=== PATIENT | female | born 1980 | race Caucasian/White ===

== ENCOUNTER 2017-04-06 09:40 | Inpatient (IN) | payer OTHER ==
[2017-04-06] MEDS: ELECTROLYTE-148 SOLN 1,000 ML IV SCH (10:20)
[2017-04-06] MEDS ORDERED: CITRIC ACID/SODIUM CITRATE 30 ML UNIT-DOSE CUP PO ONE (10:20)
[2017-04-06] MEDS ORDERED: ELECTROLYTE-148 SOLN 1,000 ML IV SCH (10:20)
[2017-04-06 10:47] VITALS: BMI 31.6
[2017-04-06 11:26] LABS: BASO % 0.1 % (0-2.0); EOS % 0.6 % (0-4.5); HEMATOCRIT 36.8 % (32.4-45.2); HEMOGLOBIN 11.9 GM/dL (10.7-15.3); LYMPH % 19.6 % (8-40); MCH 26.9 pg (25.7-33.7); MCHC 32.3 g/dl (32.0-36.0); MEAN CELL VOLUME 83.4 fl (80-96); NEUT % 72.7 % (42.8-82.8); PLATELET COUNT 253 K/MM3 (134-434); RBC 4.42 M/mm3 (3.60-5.2); RDW 15.1 % (11.6-15.6); WHITE BLOOD COUNT 9.5 K/mm3 (4.0-10.0)
[2017-04-06 11:38] LABS: INR 0.94 (0.82-1.09); PROTHROMBIN TIME (PATIENT) 10.6 SEC (9.98-11.88)
[2017-04-06 11:41] LABS: ACTIVATED PTT 24.4 SECONDS (26.9-34.4)
[2017-04-06 11:44] LABS: ANION GAP 9 (8-16); BLOOD UREA NITROGEN 12 mg/dL (7-18); CALCIUM 9.1 mg/dL (8.5-10.1); CHLORIDE 103 mmol/L (98-107); CO2 25 mmol/L (21-32); CREATININE 0.7 mg/dL (0.55-1.02); GLUCOSE,RANDOM 80 mg/dL (74-106); POTASSIUM 4.2 mmol/L (3.5-5.1); SODIUM 137 mmol/L (136-145)
[2017-04-06] MEDS ORDERED: TUBERCULIN PPD 5 TU/0.1ML SYRINGE (IN PATIENT USE ONLY) ID ONE (12:00)
[2017-04-06 12:31] LABS: URINE APPEARANCE CLEAR; URINE BILIRUBIN NEGATIVE (NEGATIVE); URINE BLOOD NEGATIVE (NEGATIVE); URINE COLOR LTYELLOW; URINE GLUCOSE (UA) NEGATIVE (NEGATIVE); URINE KETONE NEGATIVE (NEGATIVE); URINE LEUK ESTERASE NEGATIVE (NEGATIVE); URINE NITRITE NEGATIVE (NEGATIVE); URINE PROTEIN NEGATIVE (NEGATIVE); URINE UROBILINOGEN NEGATIVE mg/dL (0.2-1.0)
--- NOTE | 2017-04-06 15:20 | HP ---
Past Medical History - Primary Care Physician PCP:: Dominique Richardson - Admission Chief Complaint: rupture of membranes History of Present Illness: 36 G P LMP EDC EGA 37 weeks with premature rupture of membranes with prev CS for repeat CS History Source: Patient - Past Medical History ...: 4 ...Para: 3 ...Term: 2 ...: 1 ...Spon : 0 ...Induced : 0 ...Multiple Gestation: 0 ...LMP: 07/18/16 ... Weeks Gestation by Dates: 37.3 ...EDC by Dates: 04/24/17 ...EDC by Sono: 04/24/17 - Past Surgical History Past Surgical History: Yes: Appendectomy, Hx Myomectomy: No Hx Transabdominal Cerclage: No Additional Surgical History: Abdominoplasty. Umbilical hernia repair - Smoking History Smoking history: Never smoked Have you smoked in the past 12 months: No Aproximately how many cigarettes per day: 0 If you are a former smoker, when did you quit?: 2 weeks ago - Alcohol/Substance Use Hx Alcohol Use: No Home Medications - Allergies Allergies/Adverse Reactions: Allergies Allergy/AdvReac Type Severity Reaction Status Date / Time No Known Allergies Allergy Verified 06/19/15 06:53 - Home Medications Home Medications: Ambulatory Orders Aspirin [ASA -] 1 tab PO DAILY 06/19/15 Vit No.124/Iron/Folic [ Vitamin Tablet] 1 each PO DAILY Oxycodone HCl/Acetaminophen [Percocet 5-325 mg Tablet -] 1 tab PO Q4H #20 tablet MDD 6 06/22/15 Physical Exam - Maternity Vital Signs: Vital Signs Temperature 98.6 F 04/06/17 14:00 Pulse Rate 68 04/06/17 14:00 Respiratory Rate 20 04/06/17 14:00 Blood Pressure 107/57 04/06/17 14:00 O2 Sat by Pulse Oximetry (%) - Labs Lab Results: CBC, BMP 04/06/17 11:00 04/06/17 11:00 Assessment/Plan IUP at 37.3 week Prev CS x 3 Abdominoplasty hernia repair Plan Repeat CS
--- NOTE | 2017-04-06 15:24 | OP ---
Operative Note - Note: Operative Date: 04/06/17 Pre-Operative Diagnosis: Prev Section. Voluntary Sterilization Operation: Repeat section. Bilateral Salpingectomy Findings: Nuchal Cord X1 Post-Operative Diagnosis: Same as Pre-op Surgeon: Dominique Richardson Cooler Supervisor: Flynn Olmos Anesthesia: Spinal Estimated Blood Loss (mls): 500 Operative Report Dictated: Yes
[2017-04-06] MEDS ORDERED: OXYTOCIN 10 UNITS/ML VIAL ONE (16:09)
[2017-04-06] MEDS ORDERED: morphine SULFATE/Preservative Free 0.5 MG/ML (1cc Syringe) ONE (16:13)
[2017-04-06] MEDS ORDERED: ceFAZolin SODIUM 1 GM VIAL ONE (16:49)
[2017-04-06] MEDS ORDERED: ONDANSETRON 4 MG/2 ML VIAL IVPUSH PRN (17:08)
[2017-04-06] MEDS ORDERED: PROPOFOL 20 ML ONE (17:15)
[2017-04-06] MEDS ORDERED: SUCCINYLCHOLINE CHLORIDE 200 MG/10 ML VIAL ONE (17:15)
[2017-04-06] MEDS ORDERED: METHYLERGONOVINE MALEATE 0.2 MG/1 ML AMP IM PRN (17:28)
[2017-04-06 18:15] LABS: ARTERIAL BLOOD GAS PCO2 57.3 mmHg (35-45)
[2017-04-06] MEDS ORDERED: OXYTOCIN 20 UNITS in 0.9% NS 20 UNIT/1,000 ML INFUS.BAG IV ONE (18:15)
[2017-04-06 18:19] LABS: ARTERIAL BLOOD GAS PO2 12.6 mmHg (80-100)
[2017-04-06] MEDS: OXYTOCIN 20 UNITS in 0.9% NS 20 UNIT/1,000 ML INFUS.BAG IV SCH (18:19)
[2017-04-06 18:20] LABS: ARTERIAL BLD GAS O2 SATURATION 15.5 % (90-98.9)
[2017-04-06] MEDS: AMPICILLIN NA/SULBACTAM NA 1.5 GM in SODIUM CHLORIDE 100 ML IVPB SCH (21:19)
--- NOTE | 2017-04-06 22:21 | OP ---
DATE OF OPERATION: 04/06/2017 PREOPERATIVE DIAGNOSIS: Previous section, voluntary sterilization. OPERATION: Repeat section, bilateral salpingectomy. POSTOPERATIVE DIAGNOSIS: Previous section, voluntary sterilization. Live female infant, nuchal cord x1. SURGEON: Dominique Richardson MD BRIMMER BLOCKER: SWAPNA Queen. unavailable. ANESTHESIA: Spinal. PROCEDURE: The patient was taken to the operating room, placed in supine position, prepped and draped in the usual sterile fashion. A timeout was performed in accordance with hospital regulation. Scalpel was then used to make a low transverse uterine incision through the patient's previous scar. Cautery was then used to go through layers of abdominal wall to the level of the fascia. Fascia was cut in the midline. Cautery was then used to open the fascia in smiling fashion. Kochers then used to bluntly and sharply dissect the rectus muscle off the fascia. Muscles split in the midline. Peritoneal cavity was then entered and carried up and downward. Bladder retractors then placed. Scalpel was then used. Visualization revealed a very thin lower segment. Membranes were seen. Scalpel was then used to make a low transverse uterine incision. The incision was carried up with the use of bandage scissors. A live female infant was delivered in LOT position. Nose and mouth suction performed. Nuchal cord x1 reduced. Shoulders were delivered without difficulty. DeLee cord clamping was done. Cord was clamped and cut, cord blood obtained, cord pH obtained. was handed to information resource consultant. Uterus exteriorized and cleaned with clean lap pads. Uterine incision then closed using 0 Biosyn suture, first layer in continuous interlocking, second layer imbricating the first layer. Tubes were bilaterally grasped and LigaSure was then used to coagulate and cut the fallopian tubes away and both right and left tubes were submitted to Pathology. Uterus interiorized, abdominal cavity cleaned with clean lap pads. Peritoneum closed using 0 Biosyn suture. Muscles approximated in midline using 0 Biosyn suture. Fascia was then closed using 0 Vicryl suture in 2 parts. Subcutaneous was closed using 0 Biosyn suture. Subcutaneous was then closed using 3-0 Vicryl in subcuticular fashion. Wound was washed and dressed. Patient tolerated procedure well. Estimated blood loss 500 mL. DOMINIQUE RICHARDSON M.D. CODI/[id number]
[2017-04-06] MEDS: IBUPROFEN 800 MG/8 ML IJ IVPB PRN (23:30)
[2017-04-07] MEDS: AMPICILLIN NA/SULBACTAM NA 1.5 GM in SODIUM CHLORIDE 100 ML IVPB SCH ×3 (03:19→16:26)
[2017-04-07] MEDS: OXYTOCIN 20 UNITS in 0.9% NS 20 UNIT/1,000 ML INFUS.BAG IV SCH ×2 (03:20→14:48)
[2017-04-07] MEDS: IBUPROFEN 800 MG/8 ML IJ IVPB PRN (08:21)
[2017-04-07 08:36] LABS: BASO % 0.1 % (0-2.0); HEMATOCRIT 32.8 % (32.4-45.2); HEMOGLOBIN 10.6 GM/dL (10.7-15.3); LYMPH % 11.4 % (8-40); MCH 27.2 pg (25.7-33.7); MCHC 32.2 g/dl (32.0-36.0); MEAN CELL VOLUME 84.6 fl (80-96); MEAN PLT VOLUME 9.1 fl (7.5-11.1); MONO % 6.2 % (3.8-10.2); NEUT % 81.3 % (42.8-82.8); PLATELET COUNT 192 K/MM3 (134-434); RBC 3.88 M/mm3 (3.60-5.2); RDW 15.2 % (11.6-15.6); WHITE BLOOD COUNT 9.8 K/mm3 (4.0-10.0)
--- NOTE | 2017-04-07 14:19 | PN ---
Progress Note (short form) - Note Progress Note: Anesthesia postop note 36y/o F, s/p spinal anesthesia/ duramorph for section POD#1, vss, aaox3, c/o generalized pruritus, some discomfort over night, sensory motor intact distally, ambulated earlier No anesthesia complications.
[2017-04-07] MEDS: IBUPROFEN 600 MG TABLET (FP) PO PRN ×2 (14:43→20:39)
[2017-04-07] MEDS: oxyCODONE HCL 5 MG TABLET PO PRN ×2 (14:46→20:40)
[2017-04-07] MEDS: SIMETHICONE 80 MG TAB.CHEW (FP) PO PRN ×2 (14:47→20:39)
[2017-04-07] MEDS ORDERED: BISACODYL 10 MG SUPP.RECT RC PRN (17:28)
[2017-04-08] MEDS: oxyCODONE HCL 5 MG TABLET PO PRN ×4 (00:29→21:55)
[2017-04-08] MEDS: IBUPROFEN 600 MG TABLET (FP) PO PRN ×4 (00:29→21:56)
[2017-04-08] MEDS: SIMETHICONE 80 MG TAB.CHEW (FP) PO PRN ×3 (05:56→21:54)
--- NOTE | 2017-04-08 08:05 | PN ---
Post Progress Note - Subjective Subjective: 36 yo Para 4 status post repeat , seen and evaluated. She c/o incision pain. Post Day: 2 Type of Delivery: Repeat C/S Vital Signs: Vital Signs Temperature 97.8 F 04/07/17 21:58 Pulse Rate 72 04/07/17 21:58 Respiratory Rate 18 04/07/17 21:58 Blood Pressure 120/66 04/07/17 21:58 O2 Sat by Pulse Oximetry (%) 100 04/06/17 18:50 Breast Exam: Yes: Soft Uterus: Yes: Fundus Firm Incision: Yes: Other (Steri strips in place) Abdomen/GI: Yes: Abdomen soft, Tolerating PO Lochia: Yes: Rubra Lochia, amount: Small Extremities: Yes: Calves non-tender Perineum: Yes: Intact Activity: Ambulating - Labs Labs: CBC WBC 9.8 K/mm3 (4.0-10.0) 04/07/17 07:50 RBC 3.88 M/mm3 (3.60-5.2) 04/07/17 07:50 Hgb 10.6 GM/dL (10.7-15.3) L D 04/07/17 07:50 Hct 32.8 % (32.4-45.2) 04/07/17 07:50 MCV 84.6 fl (80-96) 04/07/17 07:50 MCH 27.2 pg (25.7-33.7) 04/07/17 07:50 MCHC 32.2 g/dl (32.0-36.0) 04/07/17 07:50 RDW 15.2 % (11.6-15.6) 04/07/17 07:50 Plt Count 192 K/MM3 (134-434) D 04/07/17 07:50 MPV 9.1 fl (7.5-11.1) 04/07/17 07:50 Neutrophils % 81.3 % (42.8-82.8) 04/07/17 07:50 Lymphocytes % 11.4 % (8-40) D 04/07/17 07:50 Monocytes % 6.2 % (3.8-10.2) 04/07/17 07:50 Eosinophils % 1.0 % (0-4.5) 04/07/17 07:50 Basophils % 0.1 % (0-2.0) 04/07/17 07:50 Problem List - Problems (1) Status post repeat low transverse section Code(s): Z98.891 - HISTORY OF UTERINE SCAR FROM PREVIOUS SURGERY Assessment/Plan Status post repeat Ambulation Analgesia as needed Continue routine care
[2017-04-08] MEDS ORDERED: DIPHTH,PERTUSS(ACELL),TET 0.5 ML DISP.SYRIN IM ONE (10:00)
[2017-04-08] MEDS: MEPERIDINE HCL CARPU-JECT 50 MG/1 ML DISP.SYRIN IM PRN ×2 (10:50→18:05)
[2017-04-08] MEDS: ELECTROLYTE-148 SOLN 1,000 ML IV SCH (13:29)
[2017-04-08] MEDS: OXYTOCIN 20 UNITS in 0.9% NS 20 UNIT/1,000 ML INFUS.BAG IV SCH (18:59)
[2017-04-09] MEDS: MEPERIDINE HCL CARPU-JECT 50 MG/1 ML DISP.SYRIN IM PRN ×5 (00:09→23:44)
--- NOTE | 2017-04-09 08:02 | PN ---
Post Progress Note Type of Delivery: Repeat C/S Vital Signs: Vital Signs Temperature 98.5 F 04/08/17 22:00 Pulse Rate 83 04/08/17 22:00 Respiratory Rate 18 04/08/17 22:00 Blood Pressure 125/74 04/08/17 22:00 O2 Sat by Pulse Oximetry (%) 100 04/06/17 18:50 Breast Exam: Yes: Soft Uterus: Yes: Fundus Firm Incision: Yes: Dressing dry and intact Abdomen/GI: Yes: Abdomen soft Lochia: Yes: Serosa Lochia, amount: Moderate Extremities: Yes: Calves non-tender Perineum: Yes: Intact Activity: Ambulating - Labs Labs: CBC WBC 9.8 K/mm3 (4.0-10.0) 04/07/17 07:50 RBC 3.88 M/mm3 (3.60-5.2) 04/07/17 07:50 Hgb 10.6 GM/dL (10.7-15.3) L D 04/07/17 07:50 Hct 32.8 % (32.4-45.2) 04/07/17 07:50 MCV 84.6 fl (80-96) 04/07/17 07:50 MCH 27.2 pg (25.7-33.7) 04/07/17 07:50 MCHC 32.2 g/dl (32.0-36.0) 04/07/17 07:50 RDW 15.2 % (11.6-15.6) 04/07/17 07:50 Plt Count 192 K/MM3 (134-434) D 04/07/17 07:50 MPV 9.1 fl (7.5-11.1) 04/07/17 07:50 Neutrophils % 81.3 % (42.8-82.8) 04/07/17 07:50 Lymphocytes % 11.4 % (8-40) D 04/07/17 07:50 Monocytes % 6.2 % (3.8-10.2) 04/07/17 07:50 Eosinophils % 1.0 % (0-4.5) 04/07/17 07:50 Basophils % 0.1 % (0-2.0) 04/07/17 07:50 Assessment/Plan s/p section btl condition stable bowel sound present patient still request Demerol for pain management plan to continue current care
[2017-04-09 08:33] LABS: BASO % 0.2 % (0-2.0); EOS % 2.8 % (0-4.5); HEMATOCRIT 33.8 % (32.4-45.2); MCH 27.2 pg (25.7-33.7); MCHC 32.6 g/dl (32.0-36.0); MEAN CELL VOLUME 83.3 fl (80-96); MEAN PLT VOLUME 8.4 fl (7.5-11.1); MONO % 5.1 % (3.8-10.2); NEUT % 73.9 % (42.8-82.8); PLATELET COUNT 237 K/MM3 (134-434); RBC 4.06 M/mm3 (3.60-5.2); RDW 15.2 % (11.6-15.6); WHITE BLOOD COUNT 7.1 K/mm3 (4.0-10.0)
[2017-04-09] MEDS: ELECTROLYTE-148 SOLN 1,000 ML IV SCH (14:16)
[2017-04-09] MEDS: OXYTOCIN 20 UNITS in 0.9% NS 20 UNIT/1,000 ML INFUS.BAG IV SCH (17:43)
[2017-04-10 08:27] VITALS: BP 121/69; PULSE 61; TEMP 97.9
--- NOTE | 2017-04-10 09:36 | PN ---
Progress Note (SOAP) - Subjective Chief Complaint: Pt doing well - Current Medications Current Medications: Active Medications Bisacodyl (Dulcolax Suppository -) 10 mg RC PRN PRN PRN Reason: CONSTIPATION Last Admin: 04/08/17 23:12 Dose: 10 mg Diphenhydramine HCl (Benadryl Injection -) 25 mg IVPUSH Q4H PRN PRN Reason: Pruritis Last Admin: 04/07/17 11:39 Dose: 25 mg Parenteral Electrolytes (Plasma-Lyte 148 -) 1,000 mls @ 125 mls/hr IV ASDIR [facility] Last Admin: 04/09/17 14:16 Dose: Not Given Oxytocin/Sodium Chloride (Normal Saline+20 Units Oxytocin -) 20 unit in 1,000 mls @ 125 mls/hr IV ASDIR [facility] Last Admin: 04/09/17 17:43 Dose: Not Given Ibuprofen (Motrin -) 600 mg PO Q4H PRN PRN Reason: PAIN LEVEL 1 - 3 Last Admin: 04/08/17 21:56 Dose: 600 mg Ibuprofen (Caldolor Injection -) 600 mg IVPB Q6H PRN PRN Reason: PAIN LEVEL 1-5 Last Admin: 04/07/17 08:21 Dose: 600 mg Meperidine HCl (Demerol Injection -) 50 mg IM Q4H PRN PRN Reason: PAIN SCALE OF 8 Last Admin: 04/09/17 23:44 Dose: 50 mg Methylergonovine Maleate (Methergine Injection -) 0.2 mg IM Q4H PRN PRN Reason: Excessive Bleeding (L&D) Ondansetron HCl (Zofran Injection) 4 mg IVPUSH Q4H PRN PRN Reason: NAUSEA Oxycodone HCl (Roxicodone -) 5 mg PO Q4H PRN PRN Reason: PAIN LEVEL 4 - 6 Last Admin: 04/07/17 20:40 Dose: 5 mg Simethicone (Mylicon -) 80 mg PO Q4H PRN PRN Reason: GAS Last Admin: 04/08/17 21:54 Dose: 80 mg - Objective Vital Signs: Vital Signs Temperature 97.9 F 04/10/17 07:30 Pulse Rate 61 04/10/17 07:30 Respiratory Rate 20 04/10/17 07:30 Blood Pressure 121/69 04/10/17 07:30 O2 Sat by Pulse Oximetry (%) 100 04/06/17 18:50 Constitutional: Yes: Well Nourished, No Distress Cardiovascular: Yes: WNL Gastrointestinal: Yes: WNL ....Post : Yes: Uterus firm, Uterus non-tender Breast(s): Yes: WNL Musculoskeletal: Yes: WNL Extremities: Yes: WNL Peripheral Pulses WNL: No Edema: No Wound/Incision: Yes: Clean/Dry, Well Approximated Labs Lab Results: CBC, BMP 04/09/17 08:00 04/06/17 11:00 Problem List - Problems (1) Status post repeat low transverse section Code(s): Z98.891 - HISTORY OF UTERINE SCAR FROM PREVIOUS SURGERY Assessment/Plan SP POD 4 Plan DC home RTO 1 week
--- NOTE | 2017-04-10 09:39 | DS ---
Physical Exam-RECEIVING DISTRIBUTION STATION OPERATOR Vital Signs: Vital Signs Temperature 97.9 F 04/10/17 07:30 Pulse Rate 61 04/10/17 07:30 Respiratory Rate 20 04/10/17 07:30 Blood Pressure 121/69 04/10/17 07:30 O2 Sat by Pulse Oximetry (%) 100 04/06/17 18:50 Constitutional: Yes: Well Nourished, No Distress HENT: Yes: WNL Cardiovascular: Yes: WNL Respiratory: Yes: WNL Gastrointestinal: Yes: WNL, Normal Bowel Sounds, Soft ....Post : Yes: Uterus firm, Uterus non-tender Breast(s): Yes: WNL Musculoskeletal: Yes: WNL Extremities: Yes: WNL Edema: No Wound/Incision: Yes: Clean/Dry, Well Approximated Neurological: Yes: WNL, Alert, Oriented Labs: CBC, BMP 04/09/17 08:00 04/06/17 11:00 Delivery - Delivery Section: Low Flap Transverse Type of Anesthesia: Spinal EBL (cc): 500 Delivery, Single - Stages of Labor Date of Delivery: 04/06/17 Time of Delivery: 16:45 Time Placenta Delivered: 16:46 Placenta: Yes: Manual Removal - Condition of Box Spring Maker/Astrobiologist Present: Yes Name: Hubert Antonio Gender: Female Weight: 6 lb 3 oz Position: Left, OT Total Hours ROM (Hrs/Mins): 08:46 - 1 Minute Total Score: 8 5 Minutes Total Score: 8 - Feeding Plan Initial Plan: Elected not to breastfeed exclusively throughout hospitalization Discharge Summary Reason For Visit: Current Active Problems Status post repeat low transverse section (Acute) Condition: Good - Instructions Diet, Activity, Other Instructions: Dr. Dominique Richardson Pesticide Use Medical Coordinator discharge instructions Physical activity Resume your normal everyday activity as tolerated no heavy lifting or exercise until seen by your surgeon. You may walk unlimited cuauhtemoc of and climb stairs. You may resume driving the car when you feel safe and comfortable behind the wheel. No sexual activity as instructed by Dr. Richardson. Wound care If you have a bandage, leave it on, and keep dry for 48-72 hours. After that time discard the outer bandage. If they are tapes on the skin under the out of bandage leave them in place. They will peel off in the next 7 to 10 days. Do Not Peel them off. You may shower the day after surgery. If there are tapes present on the skin, you may shower over them. Diet There are no dietary restrictions. Eat healthy, high-fiber foods. Drink 6 to 8 glasses of liquid each day. This will assist in keeping your bowels are regular. Pain management You may take Tylenol or acetaminophen or Ibuprofen (for example, Motrin, Advil etc.) from my pain prescription medication is ordered should be taken as prescribed for moderate to severe pain. Call Dr. Richardson for any of the following: Severe pain not relieved by medication Fever of 101 or higher Excessive bleeding or drainage on dressing Inability to urinate Call the office at [phone] for an appointment in seven days. Disposition: HOME - Home Medications Comprehensive Discharge Medication List: Ambulatory Orders Aspirin [ASA -] 1 tab PO DAILY 06/19/15 Vit No.124/Iron/Folic [ Vitamin Tablet] 1 each PO DAILY Oxycodone HCl/Acetaminophen [Percocet 5-325 mg Tablet -] 1 tab PO Q4H #20 tablet MDD 6 06/22/15
--- NOTE | 2017-04-11 19:14 | PATH ---
Surgical Pathology Report Patient Name: LIBBY MENDOZA [facility]. Rec. #: [id number] /Age/Gender: 1980 (Age: 36) / F Account: [id number] Location: [facility] OBS/DIETARY AID Taken: 04/06/2017 Received: 04/07/2017 Reported: 04/11/2017 Physicians: Dominique Richardson M.D. Specimen(s) Received A: PLACENTA B: LEFT FALLOPIAN TUBE C: RIGHT FALLOPIAN TUBE Clinical History , antepartum at 36.6 weeks PROM Final Diagnosis A. PLACENTA, SECTION: 362 g THIRD TRIMESTER PLACENTA WITH TRIVASCULAR UMBILICAL CORD AND UNREMARKABLE PLACENTAL MEMBRANES. B. FALLOPIAN TUBE, LEFT, PARTIAL EXCISION: FULL LUMINAL PORTION OF FALLOPIAN TUBE WITH VASCULAR CONGESTION. C. FALLOPIAN TUBE, RIGHT, PARTIAL EXCISION: FULL LUMINAL PORTION OF FALLOPIAN TUBE WITH VASCULAR CONGESTION AND PARATUBAL CYST. Electronically Signed Romina Nicole M.D. Gross Description A. The specimen is received fresh labeled placenta and is a 362 gram, 15.0 x 13.0 x 2.9 cm. placenta with attached membranes and umbilical cord. The attached membranes are macias, translucent with focal opacities and insert marginally. The umbilical cord measures 5.5 cm. in length and averages 0.1 cm. in diameter. The cord inserts eccentrically, 3.5 cm. to the nearest margin. No true knots or strictures are identified. Cut surface of the umbilical cord reveals 3 vessels. The surface is ford-blue with minimal fibrin deposition and appropriate caliber vessels. The maternal surface is red-brown with focal defects. Sectioning reveals red-brown, spongy parenchyma. No lesions are identified. Web Mobile Designer sections are submitted in three cassettes as follows: 1- membrane rolls and umbilical cord; 2-3- full thickness sections of placenta. B. Received in formalin labeled "portion of left fallopian tube," is a 4.5 cm in length fimbriated fallopian tube. The outer surface is ford purple and smooth. Sectioning reveals an unremarkable lumen. Web Mobile Designer sections are submitted in 2 cassettes as follows: 1-fimbria; 0-lqfsu-mcmeoojk of fallopian tube. C. Received in formalin labeled "portion of right fallopian tube," is a 3.5 cm in length fimbriated fallopian tube. The outer surface is ford purple with a 2 cm in greatest dimension attached paratubal cyst. Sectioning reveals an unremarkable lumen. Web Mobile Designer sections are submitted in 2 cassettes as follows: 1-fimbria and paratubal cyst; 2-cross sections of fallopian tube. 04/10/201704/10/2017
== END 2017-04-10 12:37 | disposition home or self-care (01) | DRG 540 ==
LOC: JDEL 09:40 → JLDR 10:20 → J3W 20:14
PROVIDERS: ADMIT Obstetrics & Gynecology; ATTEND Obstetrics & Gynecology
PROC: 10D00Z1 Extraction of Products of Conception, Low, Open Approach (ICD-10-PCS; principal; 2017-04-06)
PROC: 0UB70ZZ Excision of Bilateral Fallopian Tubes, Open Approach (ICD-10-PCS; 2017-04-06)
DX: O34.219 Maternal care for unspecified type scar from previous cesarean delivery (principal); O42.92 Full-term premature rupture of membranes, unspecified as to length of time between rupture and onset of labor; Z3A.37 37 weeks gestation of pregnancy; Z37.0 Single live birth; Z30.2 Encounter for sterilization
CPT/HCPCS: 36415; 36600; 80048; 81003; 82803; 85025; 85610; 85730; 86593; 86850; 86900; 86901; 88302-TC; 88307-TC; 90715

== ENCOUNTER 2018-06-12 18:23 | Emergency (ER) | payer OTHER ==
[2018-06-12] MEDS ORDERED: MAG HYDROX/AL HYDROX/SIMETH 30 ML UNIT-DOSE CUP PO ONE (18:28)
[2018-06-12] MEDS ORDERED: ONDANSETRON *ODT* 4 MG TABLET SL ONE (18:28)
[2018-06-12 18:29] VITALS: BP 132/80; PULSE 81; TEMP 97.9
--- NOTE | 2018-06-12 18:31 | PDOC ---
Rapid Medical Evaluation Chief Complaint: Pain Time Seen by Provider: 06/12/18 18:26 Medical Evaluation: Allergies Allergy/AdvReac Type Severity Reaction Status Date / Time No Known Allergies Allergy Verified 06/12/18 18:26 06/12/18 18:27 37 year old female c/o epigastric pain radiating up to the chest started today. history of gastroparesis PE: patient alert ox3 A: gastritis? epigastric abdominal pain P: maalox EKG UA urine patient to the ER for further management . Discharge Disposition - Diagnosis Abdominal pain Qualifiers: Abdominal location: epigastric Qualified Code(s): R10.13 - Epigastric pain - Referrals - Patient Instructions - Post Discharge Activity
[2018-06-12 19:22] LABS: EPI CELLS 2.8 /HPF (0-5/HPF); URINE APPEARANCE CLEAR; URINE BACTERIA 48.6 /hpf (NEGATIVE); URINE BILIRUBIN NEGATIVE (NEGATIVE); URINE CASTS 1 /lpf (0-8); URINE COLOR YELLOW; URINE GLUCOSE (UA) NEGATIVE (NEGATIVE); URINE KETONE 1+ (NEGATIVE); URINE LEUK ESTERASE NEGATIVE (NEGATIVE); URINE NITRITE NEGATIVE (NEGATIVE); URINE PROTEIN NEGATIVE (NEGATIVE); URINE RBC 1 /hpf (0-4); URINE UROBILINOGEN 0.2 mg/dL (0.2-1.0); URINE WBC 2 /hpf (0-5)
[2018-06-12 19:32] LABS: HCG,QUALITATIVE URINE Negative
--- NOTE | 2018-06-12 19:45 | PDOC ---
History of Present Illness - General Chief Complaint: Pain, Acute Stated Complaint: ABD PAIN/VOMITING/CHEST PAIN Time Seen by Provider: 06/12/18 18:26 Past History - Past Medical History Allergies/Adverse Reactions: Allergies Allergy/AdvReac Type Severity Reaction Status Date / Time No Known Allergies Allergy Verified 06/12/18 18:26 Home Medications: Ambulatory Orders Aspirin [ASA -] 1 tab PO DAILY 06/19/15 Vit No.124/Iron/Folic [ Vitamin Tablet] 1 each PO DAILY Oxycodone HCl/Acetaminophen [Percocet 5-325 mg Tablet -] 1 tab PO Q4H #20 tablet MDD 6 06/22/15 Oxycodone HCl/Acetaminophen [Percocet 5-325 mg Tablet] 1 - 2 tab PO Q6H #20 tab MDD 6 04/10/17 Asthma: No Cancer: No Cardiac Disorders: No COPD: No Diabetes: No Disorders: Yes HTN: No Psychiatric Problems: Yes (anxiety) Seizures: No Thyroid Disease: No - Surgical History Abdominal Surgery: Yes (Hiatal Hernia laproscopic) Appendectomy: Yes - Reproductive History (#): 3 Para: 2 - Immunization History Immunization Up to Date: Yes - Suicide/Smoking/Psychosocial Hx Smoking Status: Yes Smoking History: Never smoked Have you smoked in the past 12 months: No Number of Cigarettes Smoked Daily: 0 If you are a former smoker, when did you quit?: 2 weeks ago 'Breaking Loose' booklet given: 08/08/14 Hx Alcohol Use: No Drug/Substance Use Hx: No Substance Use Type: None Hx Substance Use Treatment: No *Physical Exam - Vital Signs Last Vital Signs Temp Pulse Resp BP Pulse Ox 97.9 F 81 18 132/80 100 06/12/18 18:27 06/12/18 18:27 06/12/18 18:27 06/12/18 18:27 06/12/18 18:27 ED Treatment Course - ADDITIONAL ORDERS Additional order review: Laboratory Results 06/12/18 19:10 Urine Color Yellow Urine Appearance Clear Urine pH 5.0 Ur Specific Alden 1.016 Urine Protein Negative Urine Glucose (UA) Negative Urine Ketones 1+ H Urine Blood 1+ H Urine Nitrite Negative Urine Bilirubin Negative Urine Urobilinogen 0.2 Ur Leukocyte Esterase Negative Urine WBC (Auto) 2 Urine RBC (Auto) 1 Urine Casts (Auto) 1 U Epithel Cells (Auto) 2.8 Urine Bacteria (Auto) 48.6 Urine HCG, Qual Negative - Medications Given in the ED: ED Medications Discontinued Medications Generic Name Dose Route Start Last Admin Trade Name Freq PRN Reason Stop Dose Admin Al Hydroxide/Mg Hydroxide 30 ml 06/12/18 18:28 06/12/18 19:10 Mylanta Oral Suspension - PO 06/12/18 18:29 Not Given ONCE ONE Ondansetron HCl 4 mg 06/12/18 18:28 06/12/18 19:10 Zofran Odt - SL 06/12/18 18:29 4 mg ONCE ONE Administration *DC/Admit/Observation/Transfer Diagnosis at time of Disposition: Abdominal pain Qualifiers: Abdominal location: epigastric Qualified Code(s): R10.13 - Epigastric pain - Referrals Referrals: Ten Sheth MD [Primary Care Provider] - - Patient Instructions - Post Discharge Activity
--- NOTE | 2018-06-12 20:08 | PDOC ---
History of Present Illness - General Chief Complaint: Pain, Acute Stated Complaint: ABD PAIN/VOMITING/CHEST PAIN Time Seen by Provider: 06/12/18 18:26 - History of Present Illness Initial Comments: 06/12/18 20:06 37 yo F with h/o gastroparesis, appendectomy, hernia repair, who p/w epigastria abdominal pain, and vomiting. Patient reports acute onset of sharp,non radiating , unremitting, spasmodic, epiagstric abdominal pain, beginning today at approximately 1200 PM following PO intake of salad with chicken. 5 episodes of NBNB emesis. Pain worse with Reports symptoms similiar to past gastroparesis, with last onset months ago. Follows with GI dr. Channing Patel, not on medication, last endoscopy unremarkable x 2 years ago. Denies OTC symptom control. Last BM yesterday. Patient denies VIDAL, vision change, palpitations, cough, wheezing, orthopena, PND , leg swelling/pain, N/V, F,C, CP, SOB, urinary complaints, hematuria, BPR, diarrhea, constipation, lightheadedness, weakness, sensory changes. PMHx: as noted above. H/o abdominoplasty, appendectomy, and hernia repair. ROS: as noted SHx: Denies Etoh, IVDA, tobacco use, Allergies: NKDA Past History - Past Medical History Allergies/Adverse Reactions: Allergies Allergy/AdvReac Type Severity Reaction Status Date / Time No Known Allergies Allergy Verified 06/12/18 18:26 Home Medications: Ambulatory Orders Aspirin [ASA -] 1 tab PO DAILY 06/19/15 Vit No.124/Iron/Folic [ Vitamin Tablet] 1 each PO DAILY Oxycodone HCl/Acetaminophen [Percocet 5-325 mg Tablet -] 1 tab PO Q4H #20 tablet MDD 6 06/22/15 Oxycodone HCl/Acetaminophen [Percocet 5-325 mg Tablet] 1 - 2 tab PO Q6H #20 tab MDD 6 04/10/17 Asthma: No Cancer: No Cardiac Disorders: No COPD: No Diabetes: No Disorders: Yes HTN: No Psychiatric Problems: Yes (anxiety) Seizures: No Thyroid Disease: No - Surgical History Abdominal Surgery: Yes (Hiatal Hernia laproscopic) Appendectomy: Yes - Reproductive History (#): 3 Para: 2 - Immunization History Immunization Up to Date: Yes - Suicide/Smoking/Psychosocial Hx Smoking Status: Yes Smoking History: Never smoked Have you smoked in the past 12 months: No Number of Cigarettes Smoked Daily: 0 If you are a former smoker, when did you quit?: 2 weeks ago 'Breaking Loose' booklet given: 08/08/14 Hx Alcohol Use: No Drug/Substance Use Hx: No Substance Use Type: None Hx Substance Use Treatment: No Review of Systems - Review of Systems Comments:: 06/12/18 20:06 GENERAL/CONSTITUTIONAL: No fever or chills. No weakness. HEAD, EYES, EARS, NOSE AND THROAT: No change in vision. No ear pain or discharge. No sore throat. CARDIOVASCULAR: No chest pain or shortness of breath RESPIRATORY: No cough, wheezing, or hemoptysis. GASTROINTESTINAL: + abdominal pain, nausea, vomiting. No diarrhea or constipation. GENITOURINARY: No dysuria, frequency, or change in urination. MUSCULOSKELETAL: No joint or muscle swelling or pain. No neck or back pain. SKIN: No rash NEUROLOGIC: No headache, vertigo, loss of consciousness, or change in strength/ sensation. ENDOCRINE: No increased thirst. No abnormal weight change HEMATOLOGIC/LYMPHATIC: No anemia, easy bleeding, or history of blood clots. ALLERGIC/IMMUNOLOGIC: No hives or skin allergy. *Physical Exam - Vital Signs Last Vital Signs Temp Pulse Resp BP Pulse Ox 97.9 F 81 18 132/80 100 06/12/18 18:27 06/12/18 18:27 06/12/18 18:27 06/12/18 18:27 06/12/18 18:27 - Physical Exam Comments: 06/12/18 20:06 GENERAL: Awake, alert, and fully oriented, in no acute distress HEAD: No signs of trauma, normocephalic, atraumatic EYES: PERRLA, EOMI, sclera anicteric, conjunctiva clear ENT: Hearing grossly normal, nares patent, oropharynx clear without exudates. Moist mucosa NECK: Normal ROM, supple, no lymphadenopathy, JVD, or masses LUNGS: No distress, speaks full sentences, clear to auscultation bilaterally HEART: Regular rate and rhythm, normal S1 and S2, no murmurs, rubs or gallops, peripheral pulses normal and equal bilaterally. ABDOMEN: + epigastria ttp, and hypoactive BS. Soft, NDS. No guarding, no rebound. No masses. Neg CVA ttp. EXTREMITIES : Normal inspection, Normal range of motion, no edema. No clubbing or cyanosis. NEUROLOGICAL: Cranial nerves II through XII grossly intact. Normal speech, normal gait, no focal sensorimotor deficits SKIN: Warm, Dry, normal turgor, no rashes or lesions noted ED Treatment Course - LABORATORY CBC & Chemistry Diagram: 06/12/18 20:35 06/12/18 21:03 - ADDITIONAL ORDERS Additional order review: Laboratory Results 06/12/18 19:10 Urine Color Yellow Urine Appearance Clear Urine pH 5.0 Ur Specific [place] 1.016 Urine Protein Negative Urine Glucose (UA) Negative Urine Ketones 1+ H Urine Blood 1+ H Urine Nitrite Negative Urine Bilirubin Negative Urine Urobilinogen 0.2 Ur Leukocyte Esterase Negative Urine WBC (Auto) 2 Urine RBC (Auto) 1 Urine Casts (Auto) 1 U Epithel Cells (Auto) 2.8 Urine Bacteria (Auto) 48.6 Urine HCG, Qual Negative - Medications Given in the ED: ED Medications Discontinued Medications Generic Name Dose Route Start Last Admin Trade Name Freq PRN Reason Stop Dose Admin Al Hydroxide/Mg Hydroxide 30 ml 06/12/18 18:28 06/12/18 19:10 Mylanta Oral Suspension - PO 06/12/18 18:29 Not Given ONCE ONE Ondansetron HCl 4 mg 06/12/18 18:28 06/12/18 19:10 Zofran Odt - SL 06/12/18 18:29 4 mg ONCE ONE Administration Medical Decision Making - Medical Decision Making 06/12/18 20:24 37 yo F with h/o gastroparesis. appendectomy, hernia repair, who p/w epigastria abdominal pain, and vomiting x 5 NBNB epsiodes beginning today 1200 PM (06/02/18 ). Vitals wnl, AF, A&Ox3. Physical exam with epiagstirc ttp. Will consider pancreatitis, biliary dz., gastritis, esophagitis, gastroenteritis, gastroparesis. Low suspicion urinary or ovarian pathology. Provide antiemetic, analgesia, and fluid control. Ed Course: NS, Zofran, Famotidine, Tylenol, Carafate, Viscous Lido 06/12/18 21:28 EKG: NSR with HR 73, TWI V1-V2. Nml interval duration and axis. Absent MANFRED, STD. Nml R wave progression and axis. 06/12/18 22:07 WBC: 12.9 UA: Neg 06/12/18 22:24 HCG: Neg 06/12/18 22:41 CMP: Unremarkable Trop: Neg 06/12/18 23:31 Advised to f/u with PMD Patient stable for d/c with return precautions *DC/Admit/Observation/Transfer Diagnosis at time of Disposition: Abdominal pain Qualifiers: Abdominal location: epigastric Qualified Code(s): R10.13 - Epigastric pain - Discharge Dispostion Disposition: HOME Condition at time of disposition: Stable Decision to Admit order: No - Referrals Referrals: Ten Sheth MD [Primary Care Provider] - Ismael Beebe MD [Staff Physician] - - Patient Instructions Printed Discharge Instructions: DI for Abdominal Pain-Adult Additional Instructions: Please return to the emergency department with any new or worsening symptoms or concerns. Please follow up with your primary care physician within 72 hours. - Post Discharge Activity
[2018-06-12] MEDS ORDERED: SUCRALFATE 1 GM/10 ML UNIT DOSE CUPS PO ONE (20:14)
[2018-06-12] MEDS ORDERED: ACETAMINOPHEN 1000 MG/100 ML VIAL (NON FORMULARY) IVPB ONE (20:14)
[2018-06-12] MEDS ORDERED: ONDANSETRON 4 MG/2 ML VIAL IVPUSH ONE (20:14)
[2018-06-12] MEDS ORDERED: FAMOTIDINE 20 MG/50 ML IVPB 20 MG/50 ML MG IVPB ONE ×2 (20:14→21:02)
[2018-06-12] MEDS ORDERED: LIDOCAINE VISCOUS 2% ORAL/TOP 20 ML UNIT-DOSE CUP MM ONE (20:14)
--- NOTE | 2018-06-12 20:59 | PDOC ---
Documentation entered by Mallika López SCRIBE, acting as scribe for Carissa Brown MD. Carissa Brown MD: This documentation has been prepared by the scribe, Mallika López SCRIBE, under my direction and personally reviewed by me in its entirety. I confirm that the documentation accurately reflects all work, treatment, procedures, and medical decision making performed by me. 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 No known sick contacts. +N/V, nonbilious, nonbloody. - Physicial Exam PE: GENERAL: Awake, alert, and fully oriented. Appears uncomfortable. HEAD: No signs of trauma EYES: PERRLA, EOMI, sclera anicteric, conjunctiva clear ENT: Auricles normal inspection, hearing grossly normal, nares patent, oropharynx clear without exudates. Dry mucosa NECK: Normal ROM, supple, no lymphadenopathy, JVD, or masses LUNGS: Breath sounds equal, clear to auscultation bilaterally. No wheezes, and no crackles HEART: Regular rate and rhythm, normal S1 and S2, no murmurs, rubs or gallops ABDOMEN: Soft, +epigastric tendernes, +hypoactive bowel sounds. +Guarding, no rebound. No masses EXTREMITIES: Normal range of motion, no edema. No clubbing or cyanosis. No cords, erythema, or tenderness NEUROLOGICAL: Cranial nerves II through XII grossly intact. Normal speech, normal gait. Motor and sensation intact SKIN: Warm, Dry, normal turgor, no rashes or lesions noted. - Medical Decision Making Pt with history of gastroparesis for past 10 years secondary to a vagus nerve injury during an elective hernia surgery, presenting with epigastric pain after eating a chicken salad for lunch from a diner. No known sick contacts. Based on the epigastric location, would consider gallstones, pancreatitis, gastritis. Will give GI cocktail and await labs. Imaging if indicated based on labs.
[2018-06-12] MEDS ORDERED: ONDANSETRON 4 MG/2 ML VIAL ONE (21:02)
[2018-06-12] MEDS ORDERED: ACETAMINOPHEN INJECTION 100 ML IVPB ONE (21:02)
[2018-06-12] MEDS ORDERED: LIDOCAINE VISCOUS 2% ORAL/TOP 20 ML UNIT-DOSE CUP ONE (21:02)
[2018-06-12 21:20] LABS: BASO % 0.2 % (0-2.0); EOS % 1.9 % (0-4.5); HEMATOCRIT 40.4 % (32.4-45.2); HEMOGLOBIN 13.5 GM/dL (10.7-15.3); LYMPH % 11.4 % (8-40); MCH 28.7 pg (25.7-33.7); MCHC 33.3 g/dl (32.0-36.0); MEAN CELL VOLUME 86.1 fl (80-96); MEAN PLT VOLUME 9.4 fl (7.5-11.1); NEUT % 82.5 % (42.8-82.8); PLATELET COUNT 262 K/MM3 (134-434); RBC 4.69 M/mm3 (3.60-5.2); RDW 14.8 % (11.6-15.6); WHITE BLOOD COUNT 12.9 K/mm3 (4.0-10.0)
[2018-06-12] MEDS ORDERED: morphine CARPU-JECT 2 MG/1 ML DISP.SYRIN IVPUSH ONE (22:07)
[2018-06-12] MEDS ORDERED: MORPHINE SULFATE 2 MG/ML VIAL ONE (22:12)
[2018-06-12 22:33] LABS: ALBUMIN 3.7 g/dl (3.4-5.0); ALK PHOS 97 U/L (45-117); ANION GAP 8 MMOL/L (8-16); BILIRUBIN,TOTAL 0.3 mg/dL (0.2-1); BLOOD UREA NITROGEN 12 mg/dL (7-18); CALCIUM 9.1 mg/dL (8.5-10.1); CHLORIDE 102 mmol/L (98-107); CO2 28 mmol/L (21-32); CREATININE 0.8 mg/dL (0.55-1.3); GLUCOSE,RANDOM 75 mg/dL (74-106); LIPASE 113 U/L (73-393); POTASSIUM 3.9 mmol/L (3.5-5.1); SGOT/AST 19 U/L (15-37); SGPT/ALT 19 U/L (13-61); SODIUM 138 mmol/L (136-145); TOT PROT 7.4 g/dl (6.4-8.2)
--- NOTE | 2018-06-13 12:26 | EKG ---
Test Reason : Blood Pressure : / mmHG Vent. Rate : 073 BPM Atrial Rate : 073 BPM P-R Int : 150 ms QRS Dur : 090 ms QT Int : 400 ms P-R-T Axes : 068 026 031 degrees QTc Int : 440 ms NORMAL SINUS RHYTHM POSSIBLE LEFT ATRIAL ENLARGEMENT SEPTAL INFARCT , AGE UNDETERMINED ABNORMAL ECG WHEN COMPARED WITH ECG OF 20-MAY-2015 22:22, SEPTAL INFARCT IS NOW PRESENT Confirmed by VÍCTOR BURDICK, TRACE ([id number]) on 06/13/2018 12:25:44 PM Referred By: Confirmed By:TRACE RENEE MD
== END 2018-06-13 00:10 | disposition home or self-care (01) ==
LOC: JER 18:23
PROC: 3E033GC Introduction of Other Therapeutic Substance into Peripheral Vein, Percutaneous Approach (ICD-10-PCS; principal; 2018-06-12)
PROC: 3E033GC Introduction of Other Therapeutic Substance into Peripheral Vein, Percutaneous Approach (ICD-10-PCS; 2018-06-12)
PROC: 3E033NZ Introduction of Analgesics, Hypnotics, Sedatives into Peripheral Vein, Percutaneous Approach (ICD-10-PCS; 2018-06-12)
PROC: 3E033NZ Introduction of Analgesics, Hypnotics, Sedatives into Peripheral Vein, Percutaneous Approach (ICD-10-PCS; 2018-06-12)
DX: R10.13 Epigastric pain (principal); K31.84 Gastroparesis
CPT/HCPCS: 36415; 80053; 81003; 82550; 83690; 84484; 84703; 85025; 93005; 93010; 99281-25; J0131; Q0162

== ENCOUNTER 2020-09-14 20:20 | Emergency (ER) | payer OTHER ==
[2020-09-14 20:32] VITALS: TEMP 97.8; BMI 30.9
[2020-09-14 21:56] LABS: BASO % 0.2 % (0-2.0); EOS % 0.4 % (0-4.5); HEMATOCRIT 39.5 % (32.4-45.2); HEMOGLOBIN 12.8 GM/dL (10.7-15.3); LYMPH % 16.2 % (8-40); MCH 27.4 pg (25.7-33.7); MCHC 32.3 g/dl (32.0-36.0); MEAN CELL VOLUME 84.8 fl (80-96); MEAN PLT VOLUME 9.2 fl (7.5-11.1); MONO % 8.1 % (3.8-10.2); NEUT % 75.1 % (42.8-82.8); PLATELET COUNT 302 10^3/uL (134-434); RBC 4.66 M/mm3 (3.60-5.2); RDW 15.3 % (11.6-15.6)
[2020-09-14 22:03] LABS: INR 1.07 (0.83-1.09); PROTHROMBIN TIME (PATIENT) 12.9 SEC (9.7-13.0)
[2020-09-14 22:06] LABS: ACTIVATED PTT 27.1 SECONDS (25.2-36.5)
[2020-09-14 22:19] LABS: CHLORIDE 103 mmol/L (98-107); SODIUM 138 mmol/L (136-145)
[2020-09-14 22:21] LABS: ANION GAP 7 MMOL/L (8-16); BLOOD UREA NITROGEN 17.2 mg/dL (7-18); CALCIUM 8.9 mg/dL (8.5-10.1); CO2 28 mmol/L (21-32); GLUCOSE,RANDOM 96 mg/dL (74-106)
[2020-09-14 22:22] LABS: ALBUMIN 3.8 g/dl (3.4-5.0)
[2020-09-14 22:24] LABS: CREATININE 0.9 mg/dL (0.55-1.3); SGOT/AST 16 U/L (15-37); SGPT/ALT 23 U/L (13-61)
[2020-09-14 22:26] LABS: ALK PHOS 107 U/L (45-117); BILIRUBIN,TOTAL 0.3 mg/dL (0.2-1); TOT PROT 7.6 g/dl (6.4-8.2)
[2020-09-14] MEDS ORDERED: SODIUM CHLORIDE 0.9% 500 ML INFUS.BAG IV ONE (23:37)
[2020-09-14] MEDS ORDERED: LORazepam 2 MG/ML SDV VIAL IVPUSH ONE (23:38)
[2020-09-14] MEDS ORDERED: LORazepam 2 MG/ML SDV VIAL ONE (23:47)
[2020-09-14 23:55] VITALS: BP 136/82; PULSE 71
[2020-09-15] MEDS ORDERED: ONDANSETRON *ODT* 4 MG TABLET SL ONE (00:09)
[2020-09-15] MEDS ORDERED: ONDANSETRON *ODT* 4 MG TABLET ONE (00:10)
== END 2020-09-15 01:44 | disposition home or self-care (01) ==
LOC: JER 20:20
PROC: 3E033NZ Introduction of Analgesics, Hypnotics, Sedatives into Peripheral Vein, Percutaneous Approach (ICD-10-PCS; principal; 2020-09-14)
DX: R00.2 Palpitations (principal)
CPT/HCPCS: 36415; 71045-TC-FY; 80053; 84484; 85025; 85379; 85610; 85730; 93005; 93010; 99285-25; Q0162

== ENCOUNTER 2020-09-30 23:17 | Emergency (ER) | payer OTHER ==
[2020-09-30 23:22] VITALS: BP 135/81; PULSE 97; TEMP 97.8; BMI 31.8
[2020-10-01] MEDS ORDERED: hydrOXYzine PAMOATE 25 MG CAPSULE (FP) PO ONE ×2 (00:35→00:44)
[2020-10-01 01:08] LABS: BASO % 0.2 % (0-2.0); EOS % 0.5 % (0-4.5); HEMATOCRIT 37.8 % (32.4-45.2); HEMOGLOBIN 12.8 GM/dL (10.7-15.3); MCH 28.4 pg (25.7-33.7); MCHC 33.8 g/dl (32.0-36.0); MEAN CELL VOLUME 84.2 fl (80-96); MEAN PLT VOLUME 9.2 fl (7.5-11.1); MONO % 5.8 % (3.8-10.2); NEUT % 78.5 % (42.8-82.8); PLATELET COUNT 263 10^3/uL (134-434); RBC 4.49 M/mm3 (3.60-5.2); RDW 15.3 % (11.6-15.6); WHITE BLOOD COUNT 10.5 K/mm3 (4.0-10.0)
[2020-10-01 01:30] LABS: CHLORIDE 109 mmol/L (98-107); SODIUM 142 mmol/L (136-145)
[2020-10-01 01:32] LABS: ALBUMIN 3.7 g/dl (3.4-5.0); ANION GAP 6 MMOL/L (8-16); BLOOD UREA NITROGEN 16.3 mg/dL (7-18); CALCIUM 8.4 mg/dL (8.5-10.1); CO2 27 mmol/L (21-32)
[2020-10-01 01:33] LABS: GLUCOSE,RANDOM 93 mg/dL (74-106)
[2020-10-01 01:35] LABS: SGPT/ALT 17 U/L (13-61)
[2020-10-01 01:36] LABS: CREATININE 0.9 mg/dL (0.55-1.3); SGOT/AST 12 U/L (15-37)
[2020-10-01 01:37] LABS: BILIRUBIN,TOTAL 0.3 mg/dL (0.2-1); TOT PROT 7.3 g/dl (6.4-8.2)
[2020-10-01 01:38] LABS: ALK PHOS 95 U/L (45-117)
== END 2020-10-01 02:09 | disposition home or self-care (01) ==
LOC: JER 23:17
DX: F41.0 Panic disorder [episodic paroxysmal anxiety] (principal); R07.89 Other chest pain
CPT/HCPCS: 36415; 71045-TC-FY; 80053; 82550; 84443; 84484; 85025; 93005; 93010; 99284-25

== ENCOUNTER 2020-10-25 22:27 | Emergency (ER) | payer OTHER ==
[2020-10-25 22:37] VITALS: BP 132/73; PULSE 81; TEMP 98.1; BMI 31.5
[2020-10-26 00:34] LABS: BASO % 0.3 % (0-2.0); EOS % 0.6 % (0-4.5); HEMOGLOBIN 12.6 GM/dL (10.7-15.3); LYMPH % 13.9 % (8-40); MCH 28.8 pg (25.7-33.7); MCHC 33.9 g/dl (32.0-36.0); MEAN CELL VOLUME 84.9 fl (80-96); MEAN PLT VOLUME 9.6 fl (7.5-11.1); MONO % 5.8 % (3.8-10.2); NEUT % 79.4 % (42.8-82.8); PLATELET COUNT 269 10^3/uL (134-434); RBC 4.36 M/mm3 (3.60-5.2); RDW 15.6 % (11.6-15.6); WHITE BLOOD COUNT 11.8 K/mm3 (4.0-10.0)
[2020-10-26 00:54] LABS: CHLORIDE 108 mmol/L (98-107); SODIUM 140 mmol/L (136-145)
[2020-10-26] MEDS ORDERED: LORazepam 2 MG TABLET PO ONE (00:54)
[2020-10-26 00:56] LABS: ALBUMIN 3.6 g/dl (3.4-5.0); CALCIUM 8.6 mg/dL (8.5-10.1)
[2020-10-26 00:57] LABS: ANION GAP 6 MMOL/L (8-16); BLOOD UREA NITROGEN 18.9 mg/dL (7-18); CO2 27 mmol/L (21-32); GLUCOSE,RANDOM 90 mg/dL (74-106)
[2020-10-26 01:00] LABS: CREATININE 0.8 mg/dL (0.55-1.3); SGOT/AST 26 U/L (15-37); SGPT/ALT 20 U/L (13-61)
[2020-10-26 01:01] LABS: BILIRUBIN,TOTAL 0.3 mg/dL (0.2-1); TOT PROT 7.5 g/dl (6.4-8.2)
[2020-10-26 01:02] LABS: ALK PHOS 90 U/L (45-117)
[2020-10-26] MEDS ORDERED: LORazepam 1 MG TABLET ONE (01:13)
== END 2020-10-26 02:04 | disposition home or self-care (01) ==
LOC: JER 22:27
DX: F41.0 Panic disorder [episodic paroxysmal anxiety] (principal)
CPT/HCPCS: 36415; 71045-TC-FY; 80053; 82550; 84443; 84484; 85025; 93005; 93010; 99285-25

== ENCOUNTER 2020-10-30 10:02 | Emergency (ER) | payer OTHER ==
[2020-10-30 10:24] VITALS: BP 135/93; PULSE 97; TEMP 97.9; BMI 30.9
[2020-10-30 11:29] LABS: BASO % 0.2 % (0-2.0); EOS % 0.3 % (0-4.5); HEMATOCRIT 41.2 % (32.4-45.2); HEMOGLOBIN 14.2 GM/dL (10.7-15.3); LYMPH % 16.4 % (8-40); MCH 28.8 pg (25.7-33.7); MCHC 34.3 g/dl (32.0-36.0); MEAN CELL VOLUME 83.9 fl (80-96); MEAN PLT VOLUME 9.5 fl (7.5-11.1); NEUT % 78.1 % (42.8-82.8); PLATELET COUNT 309 10^3/uL (134-434); RBC 4.91 M/mm3 (3.60-5.2); RDW 15.6 % (11.6-15.6)
[2020-10-30 11:54] LABS: CHLORIDE 104 mmol/L (98-107); SODIUM 138 mmol/L (136-145)
[2020-10-30 11:56] LABS: CALCIUM 9.4 mg/dL (8.5-10.1)
[2020-10-30 11:57] LABS: ALBUMIN 4.1 g/dl (3.4-5.0); ANION GAP 8 MMOL/L (8-16); BLOOD UREA NITROGEN 14.9 mg/dL (7-18); CO2 27 mmol/L (21-32); GLUCOSE,RANDOM 86 mg/dL (74-106)
[2020-10-30 12:00] LABS: CREATININE 0.9 mg/dL (0.55-1.3); SGOT/AST 22 U/L (15-37); SGPT/ALT 22 U/L (13-61)
[2020-10-30 12:02] LABS: BILIRUBIN,TOTAL 0.7 mg/dL (0.2-1); TOT PROT 8.5 g/dl (6.4-8.2)
[2020-10-30 12:03] LABS: ALK PHOS 114 U/L (45-117)
[2020-10-30] MEDS ORDERED: ONDANSETRON 4 MG/2 ML VIAL IVPUSH ONE (12:34)
[2020-10-30] MEDS ORDERED: SODIUM CHLORIDE 0.9% 500 ML INFUS.BAG IV ONE (12:34)
[2020-10-30] MEDS ORDERED: FAMOTIDINE 20 MG/50 ML IVPB 20 MG/50 ML MG IVPB ONE ×2 (12:34→12:44)
[2020-10-30] MEDS ORDERED: LORazepam 2 MG/ML SDV VIAL IVPB ONE (12:34)
[2020-10-30] MEDS ORDERED: LORazepam 2 MG/ML SDV VIAL ONE (12:43)
[2020-10-30] MEDS ORDERED: ONDANSETRON 4 MG/2 ML VIAL ONE (12:44)
== END 2020-10-30 15:15 | disposition home or self-care (01) ==
LOC: JER 10:02
PROC: 3E033NZ Introduction of Analgesics, Hypnotics, Sedatives into Peripheral Vein, Percutaneous Approach (ICD-10-PCS; principal; 2020-10-30)
PROC: 3E033GC Introduction of Other Therapeutic Substance into Peripheral Vein, Percutaneous Approach (ICD-10-PCS; 2020-10-30)
DX: F41.9 Anxiety disorder, unspecified (principal); R07.89 Other chest pain
CPT/HCPCS: 36415; 71046-TC-FY; 80053; 84484; 84703; 85025; 93005; 93010; 99284-25

== ENCOUNTER 2020-11-06 21:15 | Emergency (ER) | payer OTHER ==
[2020-11-06 21:35] VITALS: TEMP 97; BMI 25.1
[2020-11-06] MEDS ORDERED: ACETAMINOPHEN/CAFFEINE/BUTALBITAL 1 TAB PO ONE (21:49)
[2020-11-06] MEDS ORDERED: ONDANSETRON *ODT* 4 MG TABLET SL ONE (21:49)
[2020-11-06] MEDS ORDERED: ASPIRIN 325 MG TABLET PO ONE (21:50)
[2020-11-06] MEDS ORDERED: ACETAMINOPHEN/CAFFEINE/BUTALBITAL 1 TAB ONE (21:58)
[2020-11-06] MEDS ORDERED: ASPIRIN 325 MG ENTERIC COATED TABLET (FP) ONE (21:59)
[2020-11-06] MEDS ORDERED: ONDANSETRON *ODT* 4 MG TABLET ONE (21:59)
[2020-11-06 22:19] LABS: BASO % 0.2 % (0-2.0); EOS % 0.7 % (0-4.5); HEMATOCRIT 37.3 % (32.4-45.2); HEMOGLOBIN 12.6 GM/dL (10.7-15.3); LYMPH % 19.5 % (8-40); MCH 28.6 pg (25.7-33.7); MCHC 33.8 g/dl (32.0-36.0); MEAN CELL VOLUME 84.7 fl (80-96); MONO % 4.6 % (3.8-10.2); PLATELET COUNT 288 10^3/uL (134-434); RBC 4.41 M/mm3 (3.60-5.2); RDW 15.6 % (11.6-15.6); WHITE BLOOD COUNT 8.7 K/mm3 (4.0-10.0)
[2020-11-06] MEDS ORDERED: SODIUM CHLORIDE 1,000 ML IV STA (22:42)
[2020-11-06] MEDS ORDERED: LORazepam 2 MG/ML SDV VIAL IVPUSH ONE (22:43)
[2020-11-06] MEDS ORDERED: METOCLOPRAMIDE HCL INJECTION 10 MG/2 ML VIAL IVPB ONE (22:44)
[2020-11-06 22:45] LABS: CHLORIDE 106 mmol/L (98-107); SODIUM 140 mmol/L (136-145)
[2020-11-06 22:47] LABS: ANION GAP 7 MMOL/L (8-16); CO2 28 mmol/L (21-32); GLUCOSE,RANDOM 89 mg/dL (74-106)
[2020-11-06 22:48] LABS: ALBUMIN 3.9 g/dl (3.4-5.0); BLOOD UREA NITROGEN 16.1 mg/dL (7-18)
[2020-11-06 22:50] LABS: CREATININE 0.9 mg/dL (0.55-1.3)
[2020-11-06 22:51] LABS: SGOT/AST 9 U/L (15-37); SGPT/ALT 19 U/L (13-61)
[2020-11-06 22:52] LABS: BILIRUBIN,TOTAL 0.4 mg/dL (0.2-1); TOT PROT 7.8 g/dl (6.4-8.2)
[2020-11-06 22:53] LABS: ALK PHOS 94 U/L (45-117)
[2020-11-06] MEDS ORDERED: LORazepam 2 MG/ML SDV VIAL ONE (23:12)
[2020-11-06] MEDS ORDERED: METOCLOPRAMIDE HCL INJECTION 10 MG/2 ML VIAL ONE (23:12)
[2020-11-07 00:46] VITALS: BP 127/76; PULSE 67
== END 2020-11-07 00:49 | disposition home or self-care (01) ==
LOC: JER 21:15
PROC: 3E033NZ Introduction of Analgesics, Hypnotics, Sedatives into Peripheral Vein, Percutaneous Approach (ICD-10-PCS; principal; 2020-11-06)
PROC: 3E033GC Introduction of Other Therapeutic Substance into Peripheral Vein, Percutaneous Approach (ICD-10-PCS; 2020-11-06)
PROC: 3E033GC Introduction of Other Therapeutic Substance into Peripheral Vein, Percutaneous Approach (ICD-10-PCS; 2020-11-06)
PROC: 3E0337Z Introduction of Electrolytic and Water Balance Substance into Peripheral Vein, Percutaneous Approach (ICD-10-PCS; 2020-11-06)
DX: R07.9 Chest pain, unspecified (principal)
CPT/HCPCS: 36415; 71046-TC-FY; 80053; 83735; 84484; 85025; 85379; 93005; 93010; 99284-25; Q0162

== ENCOUNTER 2020-11-13 19:56 | Emergency (ER) | payer OTHER ==
[2020-11-13 20:00] VITALS: BP 130/85; PULSE 77; TEMP 97; BMI 30.1
[2020-11-13] MEDS ORDERED: ONDANSETRON *ODT* 4 MG TABLET SL ONE (21:26)
[2020-11-13] MEDS ORDERED: diazePAM 5 MG TABLET PO ONE (21:27)
[2020-11-13] MEDS ORDERED: ONDANSETRON *ODT* 4 MG TABLET ONE (21:29)
[2020-11-13] MEDS ORDERED: diazePAM 5 MG TABLET ONE (21:30)
== END 2020-11-13 23:09 | disposition home or self-care (01) ==
LOC: JER 19:56
DX: F41.9 Anxiety disorder, unspecified (principal); R11.2 Nausea with vomiting, unspecified
CPT/HCPCS: 93005; 93010; 99283-25; Q0162

== ENCOUNTER 2020-11-14 10:19 | Emergency (ER) | payer OTHER ==
[2020-11-14 10:51] VITALS: BP 106/70; PULSE 76; TEMP 97.7; BMI 30.1
[2020-11-14] MEDS ORDERED: SODIUM CHLORIDE 1,000 ML IV STA (12:00)
[2020-11-14] MEDS ORDERED: FAMOTIDINE 20 MG/50 ML IVPB 20 MG/50 ML MG IVPB ONE ×2 (12:01→12:07)
[2020-11-14] MEDS ORDERED: ONDANSETRON 4 MG/2 ML VIAL IVPUSH ONE (12:01)
[2020-11-14] MEDS ORDERED: ACETAMINOPHEN 1000 MG/100 ML VIAL (NON FORMULARY) IVPB ONE (12:01)
[2020-11-14] MEDS ORDERED: clonazePAM 0.5 MG TABLET PO ONE (12:01)
[2020-11-14] MEDS ORDERED: ONDANSETRON 4 MG/2 ML VIAL ONE (12:06)
[2020-11-14] MEDS ORDERED: ACETAMINOPHEN INJECTION 100 ML IVPB ONE (12:11)
[2020-11-14] MEDS ORDERED: clonazePAM 0.25 MG ODT TABLETS SL ONE (12:11)
[2020-11-14] MEDS ORDERED: METOCLOPRAMIDE HCL INJECTION 10 MG/2 ML VIAL IVPB ONE (12:39)
[2020-11-14] MEDS ORDERED: METOCLOPRAMIDE HCL INJECTION 10 MG/2 ML VIAL ONE (12:47)
[2020-11-14 14:39] LABS: HIV INTERPRETATION NEGATIVE (NEGATIVE)
== END 2020-11-14 13:21 | disposition home or self-care (01) ==
LOC: JER 10:19
PROC: 3E033NZ Introduction of Analgesics, Hypnotics, Sedatives into Peripheral Vein, Percutaneous Approach (ICD-10-PCS; principal; 2020-11-14)
PROC: 3E033GC Introduction of Other Therapeutic Substance into Peripheral Vein, Percutaneous Approach (ICD-10-PCS; 2020-11-14)
PROC: 3E033GC Introduction of Other Therapeutic Substance into Peripheral Vein, Percutaneous Approach (ICD-10-PCS; 2020-11-14)
PROC: 3E0337Z Introduction of Electrolytic and Water Balance Substance into Peripheral Vein, Percutaneous Approach (ICD-10-PCS; 2020-11-14)
PROC: 3E033GC Introduction of Other Therapeutic Substance into Peripheral Vein, Percutaneous Approach (ICD-10-PCS; 2020-11-14)
DX: R10.13 Epigastric pain (principal); F41.9 Anxiety disorder, unspecified; R11.2 Nausea with vomiting, unspecified
CPT/HCPCS: 36415; 87389; 93005; 93010; 99284-25; J0131

== ENCOUNTER 2020-11-17 20:11 | Emergency (ER) | payer OTHER ==
[2020-11-17 20:39] VITALS: BP 127/82; PULSE 82; TEMP 98.7; BMI 29.2
[2020-11-17] MEDS ORDERED: ONDANSETRON 4 MG TABLET PO ONE (21:38)
[2020-11-17] MEDS ORDERED: ONDANSETRON *ODT* 4 MG TABLET ONE (21:45)
[2020-11-17 22:31] LABS: BASO % 0.4 % (0-2.0); EOS % 0.2 % (0-4.5); HEMATOCRIT 39.6 % (32.4-45.2); HEMOGLOBIN 13.2 GM/dL (10.7-15.3); LYMPH % 12.4 % (8-40); MCH 27.9 pg (25.7-33.7); MCHC 33.3 g/dl (32.0-36.0); MEAN CELL VOLUME 83.6 fl (80-96); MEAN PLT VOLUME 9.9 fl (7.5-11.1); MONO % 4.5 % (3.8-10.2); NEUT % 82.5 % (42.8-82.8); PLATELET COUNT 289 10^3/uL (134-434); RBC 4.73 M/mm3 (3.60-5.2); RDW 15.9 % (11.6-15.6); WHITE BLOOD COUNT 13.9 K/mm3 (4.0-10.0)
[2020-11-17 22:42] LABS: PROTHROMBIN TIME (PATIENT) 12.3 SEC (9.7-13.0)
[2020-11-17 22:45] LABS: ACTIVATED PTT 29.4 SECONDS (25.2-36.5)
[2020-11-17 22:46] LABS: CHLORIDE 105 mmol/L (98-107); SODIUM 138 mmol/L (136-145)
[2020-11-17 22:49] LABS: ALBUMIN 4.1 g/dl (3.4-5.0); ANION GAP 8 MMOL/L (8-16); CALCIUM 9.2 mg/dL (8.5-10.1); CO2 26 mmol/L (21-32)
[2020-11-17 22:50] LABS: GLUCOSE,RANDOM 99 mg/dL (74-106); MAGNESIUM 1.9 mg/dL (1.8-2.4)
[2020-11-17 22:52] LABS: SGPT/ALT 19 U/L (13-61)
[2020-11-17 22:53] LABS: CREATININE 0.7 mg/dL (0.55-1.3); SGOT/AST 11 U/L (15-37)
[2020-11-17 22:54] LABS: BILIRUBIN,TOTAL 0.3 mg/dL (0.2-1); TOT PROT 7.9 g/dl (6.4-8.2)
[2020-11-17 22:55] LABS: ALK PHOS 94 U/L (45-117)
== END 2020-11-18 00:44 | disposition home or self-care (01) ==
LOC: JER 20:11 → JERFT 20:11 → JER 11-18 00:44
DX: F41.9 Anxiety disorder, unspecified (principal); R42 Dizziness and giddiness
CPT/HCPCS: 36415; 70450-TC; 71046-TC-FY; 80053; 82550; 83735; 84484; 84703; 85025; 85610; 85730; 93005; 93010; 99285-25

== ENCOUNTER 2021-02-05 15:21 | Emergency (ER) | payer OTHER ==
[2021-02-05 15:37] VITALS: BP 121/79; PULSE 76; TEMP 98.2; BMI 27.4
[2021-02-05] MEDS ORDERED: MAG HYDROX/AL HYDROX/SIMETH 30 ML UNIT-DOSE CUP PO ONE (16:01)
[2021-02-05] MEDS ORDERED: FAMOTIDINE 20 MG TABLET PO ONE (16:01)
[2021-02-05] MEDS ORDERED: FAMOTIDINE 20 MG TABLET ONE (16:19)
[2021-02-05] MEDS ORDERED: MAG HYDROX/AL HYDROX/SIMETH 30 ML UNIT-DOSE CUP ONE (16:19)
[2021-02-05 16:54] LABS: BASO % 0.1 % (0-2.0); EOS % 0.5 % (0-4.5); HEMATOCRIT 37.5 % (32.4-45.2); HEMOGLOBIN 12.4 GM/dL (10.7-15.3); LYMPH % 13.2 % (8-40); MCHC 33.1 g/dl (32.0-36.0); MEAN CELL VOLUME 84.3 fl (80-96); MEAN PLT VOLUME 9.3 fl (7.5-11.1); MONO % 6.3 % (3.8-10.2); NEUT % 79.9 % (42.8-82.8); PLATELET COUNT 295 10^3/uL (134-434); RBC 4.45 M/mm3 (3.60-5.2); RDW 16.6 % (11.6-15.6); WHITE BLOOD COUNT 8.7 K/mm3 (4.0-10.0)
[2021-02-05 17:11] LABS: CHLORIDE 106 mmol/L (98-107); SODIUM 141 mmol/L (136-145)
[2021-02-05 17:14] LABS: CALCIUM 9.1 mg/dL (8.5-10.1)
[2021-02-05 17:15] LABS: ALBUMIN 3.5 g/dl (3.4-5.0); ANION GAP 6 MMOL/L (8-16); BLOOD UREA NITROGEN 11.9 mg/dL (7-18); CO2 28 mmol/L (21-32); GLUCOSE,RANDOM 81 mg/dL (74-106)
[2021-02-05 17:18] LABS: CREATININE 0.7 mg/dL (0.55-1.3); SGOT/AST 11 U/L (15-37); SGPT/ALT 15 U/L (13-61)
[2021-02-05 17:19] LABS: BILIRUBIN,TOTAL 0.4 mg/dL (0.2-1); TOT PROT 7.2 g/dl (6.4-8.2)
[2021-02-05 17:21] LABS: ALK PHOS 106 U/L (45-117)
[2021-02-05] MEDS ORDERED: ONDANSETRON *ODT* 4 MG TABLET SL ONE (17:25)
[2021-02-05] MEDS ORDERED: LORazepam 2 MG/ML SDV VIAL IVPUSH ONE (18:15)
[2021-02-05] MEDS ORDERED: LORazepam 2 MG/ML SDV VIAL ONE (18:18)
== END 2021-02-05 18:55 | disposition home or self-care (01) ==
LOC: JER 15:21
DX: F41.9 Anxiety disorder, unspecified (principal)
CPT/HCPCS: 36415; 71046-TC-FY; 80053; 84484; 85025; 93005; 93010; 99284-25; Q0162

== ENCOUNTER 2021-12-22 22:00 | Emergency (ER) | payer OTHER ==
[2021-12-22 22:13] VITALS: BP 128/83; PULSE 98; RESP 19; TEMP 98.6; BMI 30.9
[2021-12-22 22:47] LABS: BASO % 0.5 % (0-2.0); EOS % 0.4 % (0-4.5); HEMATOCRIT 34.4 % (32.4-45.2); HEMOGLOBIN 11.4 GM/dL (10.7-15.3); LYMPH % 34.6 % (8-40); MCH 27.2 pg (25.7-33.7); MCHC 33.2 g/dl (32.0-36.0); MEAN CELL VOLUME 81.9 fl (80-96); MEAN PLT VOLUME 7.9 fl (7.5-11.1); NEUT % 58.5 % (42.8-82.8); PLATELET COUNT 348 10^3/uL (134-434); RDW 16.2 % (11.6-15.6)
[2021-12-22] MEDS ORDERED: LORazepam 2 MG TABLET PO ONE (22:55)
[2021-12-22] MEDS ORDERED: LORazepam 1 MG TABLET ONE (22:58)
[2021-12-22] MEDS ORDERED: ONDANSETRON *ODT* 4 MG TABLET ONE (23:02)
[2021-12-22 23:09] LABS: CHLORIDE 106 mmol/L (98-107); SODIUM 141 mmol/L (136-145)
[2021-12-22 23:11] LABS: CALCIUM 8.5 mg/dL (8.5-10.1)
[2021-12-22 23:12] LABS: ALBUMIN 3.5 g/dl (3.4-5.0); ANION GAP 6 MMOL/L (8-16); BLOOD UREA NITROGEN 21.4 mg/dL (7-18); CO2 29 mmol/L (21-32); GLUCOSE,RANDOM 102 mg/dL (74-106)
[2021-12-22 23:15] LABS: CREATININE 0.9 mg/dL (0.55-1.3); SGOT/AST 14 U/L (15-37); SGPT/ALT 20 U/L (13-61)
[2021-12-22 23:17] LABS: BILIRUBIN,TOTAL 0.2 mg/dL (0.2-1); TOT PROT 7.1 g/dl (6.4-8.2)
[2021-12-22 23:18] LABS: ALK PHOS 118 U/L (45-117)
[2021-12-22] MEDS ORDERED: ONDANSETRON *ODT* 4 MG TABLET SL ONE (23:19)
== END 2021-12-22 23:49 | disposition home or self-care (01) ==
LOC: JER 22:00
DX: R07.89 Other chest pain (principal); F41.9 Anxiety disorder, unspecified
CPT/HCPCS: 36415; 71046-TC-FY; 80053; 84484; 85025; 93005; 93010; 99285-25; Q0162

== ENCOUNTER 2022-04-26 10:44 | Emergency (ER) | payer OTHER ==
[2022-04-26 11:10] VITALS: RESP 16; TEMP 97.9; BMI 33.6
[2022-04-26] MEDS ORDERED: FAMOTIDINE 20 MG/50 ML IVPB 20 MG/50 ML MG IVPB ONE ×3 (11:37→11:52)
[2022-04-26] MEDS ORDERED: ONDANSETRON 4 MG/2 ML VIAL IVPUSH ONE (11:37)
[2022-04-26] MEDS ORDERED: SODIUM CHLORIDE 0.9% 1000 ML INFUS.BAG IV ONE (11:37)
[2022-04-26] MEDS ORDERED: ONDANSETRON 4 MG/2 ML VIAL ONE ×2 (11:43→11:51)
[2022-04-26 12:09] LABS: HEMATOCRIT 36.4 % (32.4-45.2); HEMOGLOBIN 11.8 GM/dL (10.7-15.3); MCH 25.9 pg (25.7-33.7); MCHC 32.4 g/dl (32.0-36.0); MEAN CELL VOLUME 80.1 fl (80-96); MEAN PLT VOLUME 9.5 fl (7.5-11.1); RBC 4.55 M/mm3 (3.60-5.2); RDW 17.1 % (11.6-15.6)
[2022-04-26 12:11] LABS: WHITE BLOOD COUNT 13.1 K/mm3 (4.0-10.0)
[2022-04-26 12:12] LABS: PLATELET COUNT 333 10^3/uL (134-434)
[2022-04-26 12:28] LABS: CHLORIDE 105 mmol/L (98-107); SODIUM 139 mmol/L (136-145)
[2022-04-26 12:30] LABS: ALBUMIN 3.5 g/dl (3.4-5.0); ANION GAP 5 MMOL/L (8-16); CO2 29 mmol/L (21-32); GLUCOSE,RANDOM 95 mg/dL (74-106); LIPASE 189 U/L (73-393)
[2022-04-26 12:31] LABS: BLOOD UREA NITROGEN 12.4 mg/dL (7-18)
[2022-04-26 12:33] LABS: CREATININE 0.8 mg/dL (0.55-1.3); SGOT/AST 22 U/L (15-37)
[2022-04-26 12:35] LABS: BILIRUBIN,TOTAL 0.4 mg/dL (0.2-1); TOT PROT 7.4 g/dl (6.4-8.2)
[2022-04-26 12:36] LABS: ALK PHOS 118 U/L (45-117)
[2022-04-26 12:38] LABS: SGPT/ALT 29 U/L (13-61)
[2022-04-26 12:54] LABS: ANISOCYTOSIS 0; MACROCYTOSIS 0
[2022-04-26] MEDS ORDERED: ACETAMINOPHEN 1000 MG/100 ML BAG IVPB ONE (13:47)
[2022-04-26] MEDS ORDERED: ACETAMINOPHEN INJECTION 100 ML IVPB ONE (13:50)
[2022-04-26] MEDS ORDERED: HYDROmorphone HCL CARPU-JECT 2 MG/1 ML DISP.SYRIN IVPUSH ONE (14:59)
[2022-04-26] MEDS ORDERED: HYDROmorphone HCl 2 MG/ML VIAL ONE (15:01)
[2022-04-26 15:02] LABS: EPI CELLS 8 /uL (0-25.1); HYALINE CASTS 0 /uL (0-3.1); URINE APPEARANCE CLEAR; URINE BACTERIA >9,000 /uL (0-1359); URINE BILIRUBIN NEGATIVE (NEGATIVE); URINE COLOR YELLOW; URINE GLUCOSE (UA) NEGATIVE (NEGATIVE); URINE KETONE 1+ (NEGATIVE); URINE LEUK ESTERASE NEGATIVE (NEGATIVE); URINE NITRITE POSITIVE (NEGATIVE); URINE PROTEIN NEGATIVE (NEGATIVE); URINE RBC 21 /uL (0-23.9); URINE UROBILINOGEN 0.2 mg/dL (0.2-1.0); URINE WBC 5 /uL (0-25.8)
[2022-04-26 16:04] VITALS: BP 134/81; PULSE 93
== END 2022-04-26 16:59 | disposition home or self-care (01) ==
LOC: JER 10:44
PROC: 3E033GC Introduction of Other Therapeutic Substance into Peripheral Vein, Percutaneous Approach (ICD-10-PCS; principal; 2022-04-26)
DX: K31.84 Gastroparesis (principal)
CPT/HCPCS: 0241U-QW; 36415; 71045-TC-FY; 76705-TC; 80053; 81003; 83605; 83690; 83735; 84484; 85025; 87086; 87186; 93005; 93010; 99285-25

== ENCOUNTER 2022-05-12 23:25 | Emergency (ER) | payer OTHER ==
[2022-05-12 23:37] VITALS: BP 130/82; PULSE 98; RESP 20; TEMP 98; BMI 33.6
[2022-05-13] MEDS ORDERED: FAMOTIDINE 20 MG/50 ML IVPB 20 MG/50 ML MG IVPB ONE ×2 (00:40→00:58)
[2022-05-13] MEDS ORDERED: SODIUM CHLORIDE 0.9% 500 ML INFUS.BAG IV ONE (00:40)
[2022-05-13] MEDS ORDERED: MAG HYDROX/AL HYDROX/SIMETH 30 ML UNIT-DOSE CUP PO ONE (00:40)
[2022-05-13] MEDS ORDERED: METOCLOPRAMIDE HCL INJECTION 10 MG/2 ML VIAL IVPUSH ONE (00:40)
[2022-05-13] MEDS ORDERED: METHOCARBAMOL 500 MG TABLET PO ONE (00:41)
[2022-05-13] MEDS ORDERED: LIDOCAINE 5% TOPICAL PATCH TP ONE (00:41)
[2022-05-13] MEDS ORDERED: ACETAMINOPHEN INJECTION 100 ML IVPB ONE (00:57)
[2022-05-13] MEDS ORDERED: MAG HYDROX/AL HYDROX/SIMETH 30 ML UNIT-DOSE CUP ONE (00:57)
[2022-05-13] MEDS ORDERED: METOCLOPRAMIDE HCL INJECTION 10 MG/2 ML VIAL ONE (00:57)
[2022-05-13] MEDS ORDERED: LIDOCAINE 5% TOPICAL PATCH ONE (00:57)
[2022-05-13] MEDS ORDERED: METHOCARBAMOL 500 MG TABLET ONE (00:57)
[2022-05-13] MEDS: ACETAMINOPHEN 1000 MG/100 ML BAG IVPB ONE ×2 (01:21→01:57)
[2022-05-13] MEDS ORDERED: HYDROmorphone HCl 2 MG/ML VIAL IVPUSH ONE (01:27)
[2022-05-13] MEDS ORDERED: HYDROmorphone HCl 2 MG/ML VIAL ONE (01:52)
[2022-05-13 02:10] LABS: BASO % 0.6 % (0-2.0); EOS % 3.7 % (0-4.5); HEMATOCRIT 38.5 % (32.4-45.2); HEMOGLOBIN 12.3 GM/dL (10.7-15.3); LYMPH % 22.4 % (8-40); MCH 25.5 pg (25.7-33.7); MEAN CELL VOLUME 79.8 fl (80-96); MEAN PLT VOLUME 9.3 fl (7.5-11.1); MONO % 6.5 % (3.8-10.2); NEUT % 66.8 % (42.8-82.8); PLATELET COUNT 388 10^3/uL (134-434); RBC 4.82 M/mm3 (3.60-5.2); RDW 17.8 % (11.6-15.6); WHITE BLOOD COUNT 11.5 K/mm3 (4.0-10.0)
[2022-05-13 02:34] LABS: BLOOD UREA NITROGEN 18.2 mg/dL (7-18); CALCIUM 9.2 mg/dL (8.5-10.1)
[2022-05-13 02:35] LABS: MAGNESIUM 2.2 mg/dL (1.8-2.4)
[2022-05-13 02:38] LABS: CREATININE 0.9 mg/dL (0.55-1.3)
[2022-05-13 02:39] LABS: TOT PROT 7.8 g/dl (6.4-8.2)
[2022-05-13 02:40] LABS: BILIRUBIN,TOTAL 0.2 mg/dL (0.2-1)
[2022-05-13 03:53] LABS: EPI CELLS 26 /uL (0-25.1); HYALINE CASTS 1 /uL (0-3.1); PH,URINE 5.5 (5.0-8.0); URINE APPEARANCE CLEAR; URINE BACTERIA 5331 /uL (0-1359); URINE BILIRUBIN NEGATIVE (NEGATIVE); URINE COLOR YELLOW; URINE GLUCOSE (UA) NEGATIVE (NEGATIVE); URINE KETONE 2+ (NEGATIVE); URINE LEUK ESTERASE NEGATIVE (NEGATIVE); URINE NITRITE NEGATIVE (NEGATIVE); URINE PROTEIN NEGATIVE (NEGATIVE); URINE RBC 336 /uL (0-23.9); URINE UROBILINOGEN 0.2 mg/dL (0.2-1.0); URINE WBC 24 /uL (0-25.8)
[2022-05-13 03:54] LABS: HCG,QUALITATIVE URINE Negative
[2022-05-13] MEDS ORDERED: LIDOCAINE PATCH REMOVAL MC SCH (22:00)
== END 2022-05-13 03:46 | disposition home or self-care (01) ==
LOC: JER 23:25
PROC: 3E033GC Introduction of Other Therapeutic Substance into Peripheral Vein, Percutaneous Approach (ICD-10-PCS; principal; 2022-05-12)
DX: M54.2 Cervicalgia (principal); R11.10 Vomiting, unspecified
CPT/HCPCS: 36415; 80053; 81003; 83690; 83735; 84703; 85025; 87086; 87186; 93005; 93010; 99284-25

== ENCOUNTER 2022-06-02 21:40 | Emergency (ER) | payer OTHER ==
[2022-06-02 21:52] VITALS: BP 135/79; PULSE 90; RESP 20; TEMP 97.9; BMI 32.8
[2022-06-02] MEDS ORDERED: ACETAMINOPHEN 1000 MG/100 ML BAG IVPB ONE (22:29)
[2022-06-02] MEDS ORDERED: FAMOTIDINE 20 MG/50 ML IVPB 20 MG/50 ML MG IVPB ONE ×2 (22:29→23:01)
[2022-06-02] MEDS ORDERED: METOCLOPRAMIDE HCL INJECTION 10 MG/2 ML VIAL IVPUSH ONE (22:29)
[2022-06-02] MEDS ORDERED: LACTATED RINGERS SOLUTION 1,000 ML/1,000 ML INFUS.BAG IV SCH (22:30)
[2022-06-02] MEDS ORDERED: HYDROmorphone HCl 2 MG/ML VIAL IVPB ONE (22:38)
[2022-06-02] MEDS ORDERED: ACETAMINOPHEN INJECTION 100 ML IVPB ONE (23:01)
[2022-06-02] MEDS ORDERED: METOCLOPRAMIDE HCL INJECTION 10 MG/2 ML VIAL ONE (23:01)
[2022-06-02] MEDS ORDERED: HYDROmorphone HCl 2 MG/ML VIAL ONE (23:01)
[2022-06-02 23:16] LABS: BASO % 0.3 % (0-2.0); EOS % 11.1 % (0-4.5); HEMATOCRIT 36.2 % (32.4-45.2); HEMOGLOBIN 12.1 GM/dL (10.7-15.3); LYMPH % 14.8 % (8-40); MCHC 33.4 g/dl (32.0-36.0); MEAN CELL VOLUME 77.9 fl (80-96); MEAN PLT VOLUME 8.6 fl (7.5-11.1); MONO % 5.6 % (3.8-10.2); NEUT % 68.2 % (42.8-82.8); PLATELET COUNT 321 10^3/uL (134-434); RBC 4.65 M/mm3 (3.60-5.2); RDW 18.3 % (11.6-15.6); WHITE BLOOD COUNT 10.5 K/mm3 (4.0-10.0)
[2022-06-02 23:36] LABS: CALCIUM 9.6 mg/dL (8.5-10.1)
[2022-06-02 23:37] LABS: ALBUMIN 3.8 g/dl (3.4-5.0); BLOOD UREA NITROGEN 6.8 mg/dL (7-18)
[2022-06-02 23:40] LABS: CREATININE 0.9 mg/dL (0.55-1.3)
[2022-06-02 23:41] LABS: BILIRUBIN,TOTAL 0.4 mg/dL (0.2-1); TOT PROT 7.7 g/dl (6.4-8.2)
== END 2022-06-03 00:20 | disposition home or self-care (01) ==
LOC: JER 21:40
PROC: 3E033GC Introduction of Other Therapeutic Substance into Peripheral Vein, Percutaneous Approach (ICD-10-PCS; principal; 2022-06-02)
PROC: 3E033GC Introduction of Other Therapeutic Substance into Peripheral Vein, Percutaneous Approach (ICD-10-PCS; 2022-06-02)
PROC: 3E033GC Introduction of Other Therapeutic Substance into Peripheral Vein, Percutaneous Approach (ICD-10-PCS; 2022-06-02)
DX: R10.13 Epigastric pain (principal); R11.2 Nausea with vomiting, unspecified
CPT/HCPCS: 36415; 80053; 83690; 85025; 93005; 93010; 99284-25

== ENCOUNTER 2022-06-15 16:45 | Emergency (ER) | payer OTHER ==
[2022-06-15 17:09] VITALS: BP 122/66; PULSE 84; RESP 18; TEMP 98.6; BMI 32.8
[2022-06-15] MEDS ORDERED: ACETAMINOPHEN 1000 MG/100 ML BAG IVPB ONE (17:10)
[2022-06-15] MEDS ORDERED: ONDANSETRON 4 MG/2 ML VIAL IVPUSH ONE (17:10)
[2022-06-15] MEDS ORDERED: SODIUM CHLORIDE 0.9% 1000 ML INFUS.BAG IV ONE (17:10)
[2022-06-15] MEDS ORDERED: METOCLOPRAMIDE HCL INJECTION 10 MG/2 ML VIAL IVPB ONE (17:17)
[2022-06-15] MEDS ORDERED: ONDANSETRON 4 MG/2 ML VIAL ONE (17:18)
[2022-06-15] MEDS ORDERED: ACETAMINOPHEN INJECTION 100 ML IVPB ONE (17:18)
[2022-06-15 17:25] LABS: HEMATOCRIT 37.4 % (32.4-45.2); HEMOGLOBIN 12.3 G/dL (10.7-15.3); MCH 26.8 pg (25.7-33.7); MCHC 32.8 g/dl (32.0-36.0); MEAN CELL VOLUME 81.7 fl (80-96); MEAN PLT VOLUME 9.8 fl (7.5-11.1); RBC 4.58 10^6/uL (3.60-5.2); RDW 18.7 % (11.6-15.6); WHITE BLOOD COUNT 8.2 10^3/uL (4.0-10.8)
[2022-06-15] MEDS ORDERED: METOCLOPRAMIDE HCL INJECTION 10 MG/2 ML VIAL ONE (17:30)
[2022-06-15 17:36] LABS: ALBUMIN 3.8 g/dl (3.4-5.0); BILIRUBIN,TOTAL 0.3 mg/dl (0.2-1); CALCIUM 8.8 mg/dl (8.5-10); CREATININE 0.8 mg/dl (0.55-1.3); TOT PROT 7.2 g/dl (6.4-8.2)
[2022-06-15 17:48] LABS: PLATELET ESTIMATE ADEQUATE
[2022-06-15] MEDS ORDERED: HYDROmorphone HCl 2 MG/ML VIAL IVPUSH ONE (18:41)
[2022-06-15] MEDS ORDERED: HYDROmorphone HCL/PF 1 MG/ML VIAL ONE (18:54)
== END 2022-06-15 19:39 | disposition home or self-care (01) ==
LOC: FER 16:45
PROC: 3E033NZ Introduction of Analgesics, Hypnotics, Sedatives into Peripheral Vein, Percutaneous Approach (ICD-10-PCS; principal; 2022-06-15)
PROC: 3E033GC Introduction of Other Therapeutic Substance into Peripheral Vein, Percutaneous Approach (ICD-10-PCS; 2022-06-15)
PROC: 3E033NZ Introduction of Analgesics, Hypnotics, Sedatives into Peripheral Vein, Percutaneous Approach (ICD-10-PCS; 2022-06-15)
PROC: 3E033GC Introduction of Other Therapeutic Substance into Peripheral Vein, Percutaneous Approach (ICD-10-PCS; 2022-06-15)
PROC: 3E033GC Introduction of Other Therapeutic Substance into Peripheral Vein, Percutaneous Approach (ICD-10-PCS; 2022-06-15)
DX: R10.13 Epigastric pain (principal); Z20.822 Contact with and (suspected) exposure to COVID-19
CPT/HCPCS: 0241U-QW; 36415; 80053; 81003; 81015; 85027; 87086; 87186; 99284-25

== ENCOUNTER 2022-06-17 14:46 | Emergency (ER) | payer OTHER ==
[2022-06-17 14:54] VITALS: BMI 31.8
[2022-06-17] MEDS ORDERED: LACTATED RINGERS SOLUTION 1000 ML INFUS.BAG IV ONE (15:20)
[2022-06-17] MEDS ORDERED: ACETAMINOPHEN 1000 MG/100 ML BAG IVPB ONE (15:20)
[2022-06-17] MEDS ORDERED: FAMOTIDINE 20 MG/50 ML IVPB 20 MG/50 ML MG IVPB ONE ×2 (15:20→15:27)
[2022-06-17] MEDS ORDERED: HYDROmorphone HCl 2 MG/ML VIAL IVPUSH ONE ×2 (15:23→18:09)
[2022-06-17] MEDS ORDERED: METOCLOPRAMIDE HCL INJECTION 10 MG/2 ML VIAL IVPUSH ONE (15:23)
[2022-06-17] MEDS ORDERED: METOCLOPRAMIDE HCL INJECTION 10 MG/2 ML VIAL ONE (15:26)
[2022-06-17] MEDS ORDERED: HYDROmorphone HCl 2 MG/ML VIAL ONE ×2 (15:56→18:09)
[2022-06-17 16:19] LABS: BASO % 0.3 % (0-2.0); EOS % 4.9 % (0-4.5); HEMATOCRIT 34.7 % (32.4-45.2); HEMOGLOBIN 11.7 GM/dL (10.7-15.3); LYMPH % 15.3 % (8-40); MCH 26.3 pg (25.7-33.7); MCHC 33.7 g/dl (32.0-36.0); MEAN PLT VOLUME 9.2 fl (7.5-11.1); MONO % 5.5 % (3.8-10.2); PLATELET COUNT 327 10^3/uL (134-434); RBC 4.45 M/mm3 (3.60-5.2); RDW 18.1 % (11.6-15.6)
[2022-06-17] MEDS ORDERED: ACETAMINOPHEN INJECTION 100 ML IVPB ONE (16:31)
[2022-06-17 16:40] LABS: ALBUMIN 3.4 g/dl (3.4-5.0); BLOOD UREA NITROGEN 9.9 mg/dL (7-18); CALCIUM 8.8 mg/dL (8.5-10.1)
[2022-06-17 16:43] LABS: CREATININE 0.7 mg/dL (0.55-1.3)
[2022-06-17 16:45] LABS: BILIRUBIN,TOTAL 0.4 mg/dL (0.2-1); TOT PROT 6.8 g/dl (6.4-8.2)
[2022-06-17 19:06] VITALS: PULSE 80; TEMP 98.1
[2022-06-17 19:07] VITALS: BP 141/80; RESP 20
== END 2022-06-17 19:07 | disposition home or self-care (01) ==
LOC: JER 14:46
PROC: 3E033GC Introduction of Other Therapeutic Substance into Peripheral Vein, Percutaneous Approach (ICD-10-PCS; principal; 2022-06-17)
PROC: 3E033NZ Introduction of Analgesics, Hypnotics, Sedatives into Peripheral Vein, Percutaneous Approach (ICD-10-PCS; 2022-06-17)
PROC: 3E033GC Introduction of Other Therapeutic Substance into Peripheral Vein, Percutaneous Approach (ICD-10-PCS; 2022-06-17)
PROC: 3E033GC Introduction of Other Therapeutic Substance into Peripheral Vein, Percutaneous Approach (ICD-10-PCS; 2022-06-17)
PROC: 3E033GC Introduction of Other Therapeutic Substance into Peripheral Vein, Percutaneous Approach (ICD-10-PCS; 2022-06-17)
PROC: 3E033GC Introduction of Other Therapeutic Substance into Peripheral Vein, Percutaneous Approach (ICD-10-PCS; 2022-06-17)
DX: R10.11 Right upper quadrant pain (principal); R11.10 Vomiting, unspecified
CPT/HCPCS: 36415; 76705-TC; 80053; 83690; 83735; 85025; 99284-25

== ENCOUNTER 2022-12-05 11:18 | Day surgery (SDC) | payer OTHER ==
[2022-12-02 12:38] VITALS: BMI 37.8
[2022-12-05 12:48] VITALS: PULSE 68; RESP 16; TEMP 97.8
[2022-12-05 12:59] VITALS: BP 113/50
== END 2022-12-05 12:59 | disposition home or self-care (01) ==
LOC: FASU-ENDO 11:18
PROVIDERS: ATTEND Internal Medicine Gastroenterology
PROC: 0DB68ZX Excision of Stomach, Via Natural or Artificial Opening Endoscopic, Diagnostic (ICD-10-PCS; 2022-12-05)
PROC: 0DB98ZX Excision of Duodenum, Via Natural or Artificial Opening Endoscopic, Diagnostic (ICD-10-PCS; principal; 2022-12-05 12:22)
DX: Z01.818 Encounter for other preprocedural examination (principal); K31.7 Polyp of stomach and duodenum; K29.50 Unspecified chronic gastritis without bleeding
CPT/HCPCS: 81025; 88305-TC; 88342-TC

== ENCOUNTER 2022-12-06 13:01 | Emergency (ER) | payer OTHER ==
[2022-12-06 13:22] VITALS: BP 111/65; PULSE 82; RESP 18; TEMP 98; BMI 36.8
[2022-12-06] MEDS ORDERED: MAG HYDROX/AL HYDROX/SIMETH -MYLANTA- ORAL SUSPENSION PO ONE (14:05)
[2022-12-06] MEDS ORDERED: ALPRAZolam 0.25 MG TABLET PO ONE (14:05)
[2022-12-06] MEDS ORDERED: FAMOTIDINE 20 MG/50 ML IVPB 20 MG/50 ML MG IVPB ONE ×2 (14:05→14:09)
[2022-12-06] MEDS ORDERED: SODIUM CHLORIDE 0.9% 1000 ML INFUS.BAG IV ONE (14:06)
[2022-12-06] MEDS ORDERED: MAG HYDROX/AL HYDROX/SIMETH 30 ML UNIT-DOSE CUP ONE (14:10)
[2022-12-06] MEDS ORDERED: ALPRAZolam 0.25 MG TABLET ONE (14:10)
[2022-12-06 14:24] LABS: HEMATOCRIT 35.6 % (32.4-45.2); HEMOGLOBIN 11.5 G/dL (10.7-15.3); MCH 26.2 pg (25.7-33.7); MCHC 32.4 g/dl (32.0-36.0); MEAN PLT VOLUME 8.8 fl (7.5-11.1); PLATELET COUNT 359.2 10^3/uL (134-434); RDW 17.2 % (11.6-15.6); WHITE BLOOD COUNT 9.5 10^3/uL (4.0-10.8)
[2022-12-06 14:27] LABS: EPITHELIAL CELLS MANY /hpf
[2022-12-06 14:32] LABS: BILIRUBIN,TOTAL 0.3 mg/dl (0.2-1); BLOOD UREA NITROGEN 11.1 mg/dl (7-18); CALCIUM 8.6 mg/dl (8.5-10.1); CREATININE 0.7 mg/dl (0.6-1.3); MAGNESIUM 1.9 mg/dL (1.8-2.4); POTASSIUM 3.7 mmol/L (3.5-5.1); SGOT/AST 15.1 U/L (15-37)
== END 2022-12-06 15:38 | disposition home or self-care (01) ==
LOC: FER 13:01
PROC: 3E033GC Introduction of Other Therapeutic Substance into Peripheral Vein, Percutaneous Approach (ICD-10-PCS; principal; 2022-12-06)
DX: R53.1 Weakness (principal); R53.83 Other fatigue; R10.13 Epigastric pain; R07.89 Other chest pain; Z20.822 Contact with and (suspected) exposure to COVID-19
CPT/HCPCS: 0241U-QW; 36415; 71046-TC-FY; 80053; 81003; 81015; 83735; 84439; 84443; 84484; 85027; 87086; 87186; 93005; 99285-25

== ENCOUNTER 2023-01-04 09:20 | Emergency (ER) | payer OTHER ==
[2023-01-04 09:29] VITALS: BP 115/74; PULSE 96; RESP 18; TEMP 99; BMI 36.6
[2023-01-04] MEDS ORDERED: IBUPROFEN 600 MG TABLET (FP) PO ONE ×2 (10:33→10:38)
[2023-01-04] MEDS ORDERED: MAG HYDROX/ALH/SMC/DPHA/LIDO 240 ML MOUTHWASH MM ONE (10:33)
[2023-01-04] MEDS ORDERED: IBUPROFEN 100 MG/5 ML UNIT DOSE CUPS ONE (10:40)
[2023-01-04 12:05] LABS: THROAT:GRP A STREP NOT DETECTED (NOTDETECTED)
== END 2023-01-04 12:49 | disposition home or self-care (01) ==
LOC: JERFT 09:20
DX: J02.9 Acute pharyngitis, unspecified (principal); R09.82 Postnasal drip; R05.9 Cough, unspecified; R09.81 Nasal congestion; R13.10 Dysphagia, unspecified; R07.0 Pain in throat; Z20.822 Contact with and (suspected) exposure to COVID-19
CPT/HCPCS: 0241U-QW; 87651; 99283-25

== ENCOUNTER 2023-01-05 18:27 | Emergency (ER) | payer OTHER ==
[2023-01-05 18:34] VITALS: BP 133/76; PULSE 83; RESP 18; TEMP 98.2; BMI 35.6
[2023-01-05] MEDS ORDERED: PHENOL 177 ML SPRAY BOTTLE MM ONE (19:51)
[2023-01-05] MEDS ORDERED: DEXAMETHASONE LIQUID 0.5 MG/5 ML PO ONE (20:46)
[2023-01-05] MEDS ORDERED: DEXAMETHASONE SOD PHOSPHATE 10 MG/1 ML VIAL ONE (21:26)
== END 2023-01-05 21:34 | disposition home or self-care (01) ==
LOC: JER 18:27 → JERFT 18:27
DX: J02.9 Acute pharyngitis, unspecified (principal); R50.9 Fever, unspecified
CPT/HCPCS: 87651; 99283-25

== ENCOUNTER 2023-09-11 22:57 | Emergency (ER) | payer OTHER ==
[2023-09-11 23:05] VITALS: TEMP 97.2; BMI 34.0
[2023-09-12] MEDS ORDERED: morphine SULFATE 4 MG/ML VIAL ONE (00:03)
[2023-09-12] MEDS ORDERED: ONDANSETRON 4 MG/2 ML VIAL ONE ×2 (00:04→06:44)
[2023-09-12] MEDS: ONDANSETRON 4 MG/2 ML VIAL IVPB ONE (00:52)
[2023-09-12] MEDS: SODIUM CHLORIDE 1,000 ML IV STA (00:52)
[2023-09-12] MEDS: morphine CARPU-JECT 4 MG/1 ML DISP.SYRIN IVPUSH ONE (00:57)
[2023-09-12 01:09] LABS: BASO % 0.2 % (0-2.0); EOS % 0.1 % (0-4.5); HEMATOCRIT 38.8 % (32.4-45.2); LYMPH % 16.2 % (8-40); MCH 24.8 pg (25.7-33.7); MEAN CELL VOLUME 79.8 fl (80-96); MEAN PLT VOLUME 9.1 fl (7.5-11.1); MONO % 5.6 % (3.8-10.2); NEUT % 77.9 % (42.8-82.8); PLATELET COUNT 378 10^3/uL (134-434); RBC 4.86 M/mm3 (3.60-5.2); RDW 19.7 % (11.6-15.6); WHITE BLOOD COUNT 12.1 K/mm3 (4.0-10.0)
[2023-09-12 01:46] LABS: POTASSIUM 3.5 mmol/L (3.5-5.1)
[2023-09-12] MEDS ORDERED: HYDROmorphone HCL CARPU-JECT 2 MG/1 ML DISP.SYRIN ONE ×2 (01:47→05:59)
[2023-09-12 01:48] LABS: CALCIUM 9.6 mg/dL (8.5-10.1)
[2023-09-12 01:49] LABS: ALBUMIN 3.4 g/dl (3.4-5.0); BLOOD UREA NITROGEN 7.6 mg/dL (7-18)
[2023-09-12 01:51] LABS: CREATININE 0.7 mg/dL (0.55-1.3)
[2023-09-12] MEDS: HYDROmorphone HCl 2 MG/ML VIAL IVPUSH ONE ×2 (01:52→06:04)
[2023-09-12 01:53] LABS: TOT PROT 7.9 g/dl (6.4-8.2)
[2023-09-12 01:54] LABS: BILIRUBIN,TOTAL 0.4 mg/dL (0.2-1)
[2023-09-12] MEDS ORDERED: PANTOPRAZOLE SODIUM 40 MG/100 ML BAG IVPB ONE (06:11)
[2023-09-12] MEDS: ONDANSETRON 4 MG/2 ML VIAL IVPUSH ONE (06:54)
[2023-09-12] MEDS: SODIUM CHLORIDE 0.9% 500 ML INFUS.BAG IV ONE (06:54)
[2023-09-12] MEDS: PANTOPRAZOLE SODIUM 40 MG VIAL IVPUSH ONE (06:54)
[2023-09-12] MEDS: SODIUM CHLORIDE 1,000 ML IV SCH (09:16)
[2023-09-12 09:21] VITALS: BP 120/74; PULSE 86; RESP 18
== END 2023-09-12 09:22 | disposition home or self-care (01) ==
LOC: JER 22:57
PROC: 3E033NZ Introduction of Analgesics, Hypnotics, Sedatives into Peripheral Vein, Percutaneous Approach (ICD-10-PCS; principal; 2023-09-12)
PROC: 3E033NZ Introduction of Analgesics, Hypnotics, Sedatives into Peripheral Vein, Percutaneous Approach (ICD-10-PCS; 2023-09-12)
PROC: 3E033NZ Introduction of Analgesics, Hypnotics, Sedatives into Peripheral Vein, Percutaneous Approach (ICD-10-PCS; 2023-09-12)
PROC: 3E033GC Introduction of Other Therapeutic Substance into Peripheral Vein, Percutaneous Approach (ICD-10-PCS; 2023-09-12)
PROC: 3E033GC Introduction of Other Therapeutic Substance into Peripheral Vein, Percutaneous Approach (ICD-10-PCS; 2023-09-12)
PROC: 3E033GC Introduction of Other Therapeutic Substance into Peripheral Vein, Percutaneous Approach (ICD-10-PCS; 2023-09-12)
PROC: 3E0337Z Introduction of Electrolytic and Water Balance Substance into Peripheral Vein, Percutaneous Approach (ICD-10-PCS; 2023-09-12)
DX: R10.13 Epigastric pain (principal); R11.2 Nausea with vomiting, unspecified
CPT/HCPCS: 36415; 74177-TC; 80053; 83690; 84703; 85025; 99285-25